=== PATIENT | female | born 1930 | race Caucasian/White ===

== ENCOUNTER 2018-11-29 09:50 | Inpatient (IN) | payer OTHER ==
[~2018-11-29] VITALS: Ht 152.4 cm; Wt 51.7 kg
[2018-11-29 09:53] VITALS: Ht 152.4 cm; Wt 51.7 kg
[2018-11-29] MEDS ORDERED: SOD CHLORIDE 0.9% 1,000 ML IV STA (10:14)
--- NOTE | 2018-11-29 10:19 | ERD ---
ER Documentation Chief Complaint Chief Complaint low h/h from assisted living. sent by pmd HPI 88-year-old woman referred here from assisted living facility for anemia. Patient states she has been feeling weak and dehydrated for the last 5-7 days. She denies blood per rectum or melena, no fevers or chills, no complaints of chest pain or shortness of breath. Patient does have dementia so HPI was limited but supplemented by speaking to EMS, reviewing custodial records, and past medical history. Patient is DO NOT RESUSCITATE status ROS All systems reviewed and are negative except as per history of present illness. Medications Home Meds Reported Medications Zolpidem Tartrate* (Zolpidem Tartrate*) 5 Mg Tablet, 5 MG PO QHS PRN for INSOMNIA, #30 TAB 11/29/18 Sennosides* (Senna Lax*) 8.6 Mg Tablet, 1 TAB PO DAILY PRN for CONSTIPATION, TAB 11/29/18 Guaifenesin-Dextromethorphan* (Robitussin* DM) 100MG/10MG/5ML Syrup, 10 ML PO Q4H PRN for COUGH, ML 11/29/18 Amino Acids/Protein Hydrolys (PRO-STAT LIQUID) 30 Ml Liquid.pkt, 30 ML PO BID 11/29/18 Ondansetron Hcl* (Ondansetron Hcl*) 4 Mg Tablet, 4 MG PO Q8 PRN for NAUSEA AND/OR VOMITING, TAB 11/29/18 Multivitamins* (Theragran*) 1 Tab Tab, 1 TAB PO DAILY, TAB 11/29/18 Metoprolol Tartrate* (Lopressor*) 50 Mg Tab, 50 MG PO BID, #60 TAB HOLD FOR SBP<110 OR HR<60 11/29/18 Melatonin (Melatonin) 3 Mg Tablet.sa, 3 MG PO HS, TAB.SA 11/29/18 Magnesium Oxide* (Magnesium Oxide*) 400 Mg Tablet, 400 MG PO BID, TAB 11/29/18 Levothyroxine Sodium* (Levothyroxine Sodium*) 125 Mcg Tablet, 125 MCG PO BEFORE BREAKFAST, #30 TAB 11/29/18 Hydrocodone/Acetaminophen (Wildrose 5-325 Tablet) 1 Each Tablet, 1 EACH PO Q4 PRN f or SEVERE PAIN LEVEL 7-10, TAB 11/29/18 Hydralazine Hcl* (Hydralazine Hcl*) 25 Mg Tab, 25 MG PO BID, #60 TAB HOLD FOR SBP<110 11/29/18 Guaifenesin/Dextromethorphan (Tammie-Tussin Dm Syrup) 473 Ml Syrup, 10 ML PO Q4 PRN for COUGH 11/29/18 Ferrous Sulfate* (Ferrous Sulfate*) 325 Mg Tabec, 325 MG PO DAILY, TAB 11/29/18 Docusate Sodium* (Colace*) 100 Mg Capsule, 100 MG PO BID, #60 CAP 11/29/18 Clopidogrel Bisulfate (Clopidogrel) 75 Mg Tablet, 75 MG PO DAILY, #30 TAB 11/29/18 Benzocaine/Menthol* (Cepacol* Sore Throat Lozenges) 1 Each Lozenge, 1 EACH MM q2h PRN for SORE THROAT, LOZENGE 11/29/18 Atorvastatin* (Atorvastatin*) 40 Mg Tablet, 40 MG PO QHS, #30 TAB 11/29/18 Aspirin* (Aspirin* Chew) 81 Mg Tab.chew, 81 MG PO DAILY, TAB.CHEW 11/29/18 Ascorbic Acid (Vitamin C) 250 Mg Tab, 250 MG PO DAILY, TAB 11/29/18 Acetaminophen* (Acetaminophen*) 650 Mg Tablet, 650 MG PO Q6H PRN for MILD PAIN LEVEL 1-3, #30 TAB 11/29/18 Discontinued Reported Medications Metoprolol Succinate* (Toprol XL*) 25 Mg Tab.sr.24h, 25 MG PO DAILY, #30 TAB HOLD IF SBP<110 OR HR<60 11/29/18 Allergies Allergies: Coded Allergies: Sulfa (Sulfonamide Antibiotics) (Verified Allergy, Severe, 11/29/18) PER FACESHEET PMhx/Soc Hypertension, hypothyroidism, history of SVT FmHx Family History: No diabetes Physical Exam Vitals Vital Signs Date Temp Pulse Resp B/P (MAP) Pulse Ox O2 O2 Flow FiO2 Time Delivery Rate 11/29/18 97.5 76 18 119/54 95 09:53 (75) Physical Exam Const: No acute distress, appears dehydrated, afebrile Head: Atraumatic Eyes: Pale conjunctiva, no icterus ENT: Dry mucous membranes Neck: Full range of motion. No meningismus. Resp: Clear to auscultation bilaterally Cardio: Tachycardic and regular Abd: Soft, non tender, non distended. Normal bowel sounds Skin: No petechiae or rashes Back: No midline or flank tenderness Ext: No cyanosis, or edema Neur: Awake and alert x3, no focal deficits or facial asymmetry Psych: Normal Mood and Affect Result Diagram: 11/29/18 1012 11/29/18 1012 Results 24 hrs Laboratory Tests Test 11/29/18 10:12 11/29/18 10:50 White Blood Count 7.3 10^3/ul Red Blood Count 2.63 10^6/ul Hemoglobin 7.4 g/dl Hematocrit 24.1 % Mean Corpuscular Volume 91.6 fl Mean Corpuscular Hemoglobin 28.1 pg Mean Corpuscular Hemoglobin Concent 30.7 g/dl Red Cell Distribution Width 17.2 % Platelet Count 762 10^3/UL Mean Platelet Volume 8.1 fl Immature Granulocytes % 0.500 % Neutrophils % 73.6 % Lymphocytes % 11.4 % Monocytes % 8.1 % Eosinophils % 5.4 % Basophils % 1.0 % Nucleated Red Blood Cells % 0.0 /100WBC Immature Granulocytes # 0.040 10^3/ul Neutrophils # 5.4 10^3/ul Lymphocytes # 0.8 10^3/ul Monocytes # 0.6 10^3/ul Eosinophils # 0.4 10^3/ul Basophils # 0.1 10^3/ul Nucleated Red Blood Cells # 0.0 10^3/ul Sodium Level 137 mmol/L Potassium Level 4.3 mmol/L Chloride Level 96 mmol/L Carbon Dioxide Level 27 mmol/L Anion Gap 14 Blood Urea Nitrogen 14 mg/dl Creatinine 0.64 mg/dl Est Glomerular Filtrat Rate mL/min mL/min Glucose Level 98 mg/dl Calcium Level 9.3 mg/dl Total Bilirubin 0.0 mg/dl Direct Bilirubin 0.00 mg/dl Indirect Bilirubin 0.0 mg/dl Aspartate Amino Transf (AST/SGOT) 26 IU/L Alanine Aminotransferase (ALT/SGPT) 17 IU/L Alkaline Phosphatase 99 IU/L Troponin I < 0.012 ng/ml Total Protein 6.6 g/dl Albumin 3.3 g/dl Globulin 3.30 g/dl Albumin/Globulin Ratio 1.00 Lipase 62 U/L Urine Color YELLOW Urine Clarity CLEAR Urine pH 7.0 Urine Specific Sterling 1.008 Urine Ketones NEGATIVE mg/dL Urine Nitrite NEGATIVE mg/dL Urine Bilirubin NEGATIVE mg/dL Urine Urobilinogen NEGATIVE mg/dL Urine Leukocyte Esterase NEGATIVE Alannah/ul Urine Hemoglobin NEGATIVE mg/dL Urine Glucose NEGATIVE mg/dL Urine Total Protein NEGATIVE mg/dl Current Medications Medications Dose Sig/Martell Start Time Status Last (Trade) Ordered Route PRN Stop Time Admin Dose Reason Admin Sodium 1,000 ml @ Q1H STAT 11/29/18 DC 11/29/18 Chloride 1,000 mls/hr IV 10:14 10:36 11/29/18 11:13 Procedures/MDM IV line was established patient was placed on surveillance monitor rhythm strip revealed a narrow complex tachycardia at 110 bpm with upright P and T waves. Patient was afebrile I administered 1 L normal saline IV for dehydration. EKG performed, read by me revealed a normal sinus rhythm at 91 bpm, normal axis, narrow QRS complex, no concerning ST elevations or depressions noted CBC revealed anemia with a hemoglobin of 7.4, electrolytes were significant for dehydration, urinalysis negative for infection. Patient does have symptomatic anemia and will be admitted to medicine for continued medical management and possible PRBC transfusion that was deferred to admitting physician. Departure Diagnosis: Primary Impression: Weakness Additional Impressions: Symptomatic anemia Dehydration Condition: LANDON Gross MD Nov 29, 2018 10:19
[2018-11-29] MEDS ORDERED: ACET-2047 PO (10:57)
[2018-11-29] MEDS ORDERED: ASCO250T96 PO (10:58)
[2018-11-29] MEDS ORDERED: ASPI-903 PO (10:58)
[2018-11-29] MEDS ORDERED: ATOR40TA68 PO (10:58)
[2018-11-29] MEDS ORDERED: CLOP75TA27 PO (10:59)
[2018-11-29] MEDS ORDERED: DOCU-144 PO (10:59)
[2018-11-29] MEDS ORDERED: BENZ1LOZ52 MM (10:59)
[2018-11-29] MEDS ORDERED: FER325 PO (11:00)
[2018-11-29] MEDS ORDERED: [UNRECOGNIZED DRUG - CODE] PO (11:01)
[2018-11-29] MEDS ORDERED: HYDR-3671 PO (11:02)
[2018-11-29] MEDS ORDERED: HYDR-4011 PO (11:02)
[2018-11-29] MEDS ORDERED: LEVO125T7 PO (11:03)
[2018-11-29] MEDS ORDERED: MELA3TAB17 PO (11:03)
[2018-11-29] MEDS ORDERED: MAGN400T28 PO (11:03)
[2018-11-29] MEDS ORDERED: METO-335 PO (11:04)
[2018-11-29] MEDS ORDERED: METO-429 PO (11:05)
[2018-11-29] MEDS ORDERED: MULTI PO (11:06)
[2018-11-29] MEDS ORDERED: ONDA4TAB95 PO (11:07)
[2018-11-29] MEDS ORDERED: AMIN30LI PO (11:07)
[2018-11-29] MEDS ORDERED: GUAI5SYR2 PO (11:07)
[2018-11-29] MEDS ORDERED: SENN-120 PO (11:08)
[2018-11-29] MEDS ORDERED: ZOLP5TAB7 PO (11:08)
[2018-11-29 17:12] VITALS: BP 135/63; PULSE 93; RESP 16
[2018-11-29] MEDS ORDERED: HYDROCODONE/APAP (5/325) TAB PO PRN (18:00)
[2018-11-29] MEDS ORDERED: SENNA TAB PO PRN (18:00)
[2018-11-29] MEDS ORDERED: ONDANSETRON 4 MG TAB PO PRN (18:00)
[2018-11-29] MEDS ORDERED: ZOLPIDEM 5 MG TAB PO PRN (18:00)
[2018-11-29] MEDS ORDERED: ACETAMINOPHEN 325 MG TAB PO PRN (18:00)
[2018-11-29 20:17] VITALS: BP 110/53; PULSE 95; RESP 16
[2018-11-29] MEDS: ATORVASTATIN 40 MG TAB PO SCH (20:35)
[2018-11-29] MEDS: MAGNESIUM OXIDE 400 MG TAB PO SCH (20:36)
[2018-11-29] MEDS: DOCUSATE SODIUM 100 MG CAP PO SCH (20:36)
[2018-11-29] MEDS ORDERED: METOPROLOL 50 MG TAB PO SCH (21:00)
--- NOTE | 2018-11-29 22:44 | HP ---
DATE OF ADMISSION: 11/29/2018 CHIEF COMPLAINT: Generalized weakness. HISTORY OF PRESENT ILLNESS: The patient is an 88-year-old female with hypertension, recent admission at [facility] for supraventricular tachycardia, hypothyroidism, coronary artery disease, dy slipidemia who was recently recuperating from left distal fibular fracture. The patient was noted to have a hemoglobin of 6.4 [facility]. Platelets were 707, white count was 6.6. The pat ient has been sent to [facility] ER for further evaluation and management. The patient does have generalized weakness and looks pale and weak. No hematemesis or melena. No hematuria. No rep orted abdominal distention. Hemoglobin on 11/08/2018 was 8.2. The patient does not have any focal w eakness, remains awake and alert. The rest of the review of systems was unremarkable. PAST MEDICAL HISTORY AND PAST SURGICAL HISTORY: The patient is status post surgery for carotid arter y stenosis. The patient is status post carotid endarterectomy. The patient also has history of cerv ical spinal stenosis. ALLERGIES: SULFA. SOCIAL HISTORY: No smoking. No alcohol. FAMILY HISTORY: Noncontributory. PHYSICAL EXAMINATION: GENERAL: Awake, alert, oriented x3. VITAL SIGNS: Temperature 97.8, pulse 90, respirations 16, blood pressure 110/53, O2 saturation 94% o n room air. HEENT: Atraumatic, normocephalic. Conjunctivae are pale. Lids are normal. Oropharynx with pale mu cosa. NECK: Supple. No mass, no thyromegaly. CHEST: Fairly clear. No use of accessory muscles. CARDIOVASCULAR: S1 and S2 normal. No murmur. ABDOMEN: Soft, nondistended, nontender. No palpable mass. EXTREMITIES: No leg edema. Pedal pulses could not be felt. LABORATORY DATA: Labs done in the ER, WBC 7.2, hemoglobin 10.4, platelets 762. Sodium 137, potassiu m 4.3, BUN 14, creatinine 0.6. Liver enzymes unremarkable. Chest x-ray: Low lung volume, otherwise unremarkable. IMPRESSION: 1. Hypochromic anemia. The patient's MCH is 28.1 and also platelets 762, although her MCV is within normal range. We will obtain iron panel, vitamin B12, folic acid, and TSH level. We will also obta in LDH and retic count. We will also obtain stool for occult blood, hematology/oncology consult from Dr. Milian and GI consult from Dr. Tubbs has been obtained. Plan is to do endoscopy first. If ther e is no abnormality, the patient then will undergo colonoscopy. 2. Coronary artery disease and peripheral vascular disease. Continue aspirin. 3. Hypothyroidism. Continue Synthroid. 4. Dyslipidemia. Continue Lipitor. 5. Hypertension. Blood pressure is reasonably controlled with Apresoline and Lopressor. PLAN: Plan of care was discussed with the patient's daughter. Further recommendation will depend up on the patient's hospital course. Dictated By: EULALIO PINON/GERARD Conf#: [id number] DID#: [id number]
[2018-11-29] MEDS ORDERED: FUROSEMIDE 20 MG INJ IV ONE (23:30)
[2018-11-29 23:55] VITALS: BP 118/58; PULSE 94; RESP 18
[2018-11-30] VITALS (20 sets, daily range): BP systolic 114–142; BP diastolic 53–71; PULSE 72–106; RESP 16–22
[2018-11-30] MEDS ORDERED: LEVOTHYROXINE 125 MCG TAB PO SCH (07:00)
[2018-11-30] MEDS ORDERED: ETOMIDATE 20 MG INJ ONE (07:00)
[2018-11-30] MEDS ORDERED: LIDOCAINE 2% (SDV) 5 ML INJ ONE (07:00)
--- NOTE | 2018-11-30 08:54 | PREAC ---
Date/Time of Note Date/Time of Note DATE: 11/30/18 TIME: 08:53 Anesthesia Eval and Record Evaluation Time Pre-Procedure Interview DATE: 11/30/18 TIME: 08:52 Age 88 Sex female NPO: 8 hrs Preoperative diagnosis anemia, weakness, Planned procedure EGD Past Medical History Past Medical History: Includes Cardio: Dyslipidemia, CAD Surgery & Anesthesia Issues No known issue Meds Anticoagulation: No Beta Freya within 24 hr: Yes Reason Beta Freya not given: Pt. not on B-Freya Reported Medications Zolpidem Tartrate* (Zolpidem Tartrate*) 5 Mg Tablet, 5 MG PO QHS PRN for INSOMNIA, #30 TAB 11/29/18 Sennosides* (Senna Lax*) 8.6 Mg Tablet, 1 TAB PO DAILY PRN for CONSTIPATION, TAB 11/29/18 Guaifenesin-Dextromethorphan* (Robitussin* DM) 100MG/10MG/5ML Syrup, 10 ML PO Q4H PRN for COUGH, ML 11/29/18 Amino Acids/Protein Hydrolys (PRO-STAT LIQUID) 30 Ml Liquid.pkt, 30 ML PO BID 11/29/18 Ondansetron Hcl* (Ondansetron Hcl*) 4 Mg Tablet, 4 MG PO Q8 PRN for NAUSEA AND/OR VOMITING, TAB 11/29/18 Multivitamins* (Theragran*) 1 Tab Tab, 1 TAB PO DAILY, TAB 11/29/18 Metoprolol Tartrate* (Lopressor*) 50 Mg Tab, 50 MG PO BID, #60 TAB HOLD FOR SBP<110 OR HR<60 11/29/18 Melatonin (Melatonin) 3 Mg Tablet.sa, 3 MG PO HS, TAB.SA 11/29/18 Magnesium Oxide* (Magnesium Oxide*) 400 Mg Tablet, 400 MG PO BID, TAB 11/29/18 Levothyroxine Sodium* (Levothyroxine Sodium*) 125 Mcg Tablet, 125 MCG PO BEFORE BREAKFAST, #30 TAB 11/29/18 Hydrocodone/Acetaminophen (Pavo 5-325 Tablet) 1 Each Tablet, 1 EACH PO Q4 PRN for SEVERE PAIN LEVEL 7-10, TAB 11/29/18 Hydralazine Hcl* (Hydralazine Hcl*) 25 Mg Tab, 25 MG PO BID, #60 TAB HOLD FOR SBP<110 11/29/18 Guaifenesin/Dextromethorphan (Tammie-Tussin Dm Syrup) 473 Ml Syrup, 10 ML PO Q4 PRN for COUGH 11/29/18 Ferrous Sulfate* (Ferrous Sulfate*) 325 Mg Tabec, 325 MG PO DAILY, TAB 11/29/18 Docusate Sodium* (Colace*) 100 Mg Capsule, 100 MG PO BID, #60 CAP 11/29/18 Clopidogrel Bisulfate (Clopidogrel) 75 Mg Tablet, 75 MG PO DAILY, #30 TAB 11/29/18 Benzocaine/Menthol* (Cepacol* Sore Throat Lozenges) 1 Each Lozenge, 1 EACH MM q2h PRN for SORE THROAT, LOZENGE 11/29/18 Atorvastatin* (Atorvastatin*) 40 Mg Tablet, 40 MG PO QHS, #30 TAB 11/29/18 Aspirin* (Aspirin* Chew) 81 Mg Tab.chew, 81 MG PO DAILY, TAB.CHEW 11/29/18 Ascorbic Acid (Vitamin C) 250 Mg Tab, 250 MG PO DAILY, TAB 11/29/18 Acetaminophen* (Acetaminophen*) 650 Mg Tablet, 650 MG PO Q6H PRN for MILD PAIN LEVEL 1-3, #30 TAB 11/29/18 Discontinued Reported Medications Metoprolol Succinate* (Toprol XL*) 25 Mg Tab.sr.24h, 25 MG PO DAILY, #30 TAB HOLD IF SBP<110 OR HR<60 11/29/18 Current Medications Acetaminophen (Tylenol Tab) 650 mg Q6H PRN PO MILD PAIN LEVEL 1-3; Start at 18:00 Ascorbic Acid (Vitamin C) 250 mg DAILY PO ; Start 11/30/18 at 09:00 Aspirin (Aspirin) 81 mg DAILY PO ; Start 11/30/18 at 09:00 Atorvastatin Calcium (Lipitor) 40 mg QHS PO Last administered on 11/29/18at 20:35; Admin Dose 40 MG; Start 11/29/18 at 21:00 Docusate Sodium (Colace) 100 mg BID PO Last administered on 11/29/18at 20:36; Admin Dose 100 MG; Start 11/29/18 at 21:00 Ferrous Sulfate (Ferrous Sulfate (Ec)) 325 mg DAILY PO ; Start 11/30/18 at 09:00 Acetaminophen/ Hydrocodone Bitart (Pavo (5/325)) 1 tab Q4H PRN PO SEVERE PAIN LEVEL 7-10; Start 11/29/18 at 18:00 Levothyroxine Sodium (Synthroid) 125 mcg BEFORE BREAKFAST PO ; Start 11/30/18 at 07:00 Magnesium Oxide (Mag-Ox 400) 400 mg BID PO Last administered on 11/29/18at 20:36; Admin Dose 400 MG; Start 11/29/18 at 21:00 Multivitamins Therapeutic (Theragran) 1 tab DAILY PO ; Start 11/30/18 at 09:00 Ondansetron HCl (Zofran Tab) 4 mg Q8H PRN PO NAUSEA AND/OR VOMITING; Start 11/29/18 at 18:00 Senna (Senokot) 1 tab DAILY PRN PO CONSTIPATION; Start 11/29/18 at 18:00 Zolpidem Tartrate (Ambien) 5 mg QHS PRN PO INSOMNIA; Start 11/29/18 at 18:00 Metoprolol Tartrate (Lopressor) 25 mg BID PO ; Start 11/30/18 at 09:00 Meds reviewed: Yes Allergies Coded Allergies: Sulfa (Sulfonamide Antibiotics) (Verified Allergy, Severe, 11/29/18) PER FACESHEET Allergies Reviewed: Yes Labs/Studies Labs Reviewed: Reviewed by anesthesiologist Result Diagram: 11/29/18 1012 11/29/18 1012 Laboratory Tests 11/29/18 10:12 Blood Bank Test 11/29/18 10:32 Antibody Screen NEGATIVE Blood Product Summary Counts Blood Type A POSITIVE Crossmatch Red Blood Cells test: N/A Studies: ECG (sT), CXR (atelectasis) Pre-procedure Exam Last vitals Vital Signs Date Temp Pulse Resp B/P (MAP) Pulse Ox O2 O2 Flow FiO2 Time Delivery Rate 11/30/18 97.9 91 17 133/62 95 Nasal 2.0 08:40 (85) Cannula Airway: Adequate mouth opening Mallampati: Mallampati I Teeth: Normal Lung: Normal Heart: Normal ASA Physical Status ASA physical status: 2 Emergency: None Planned Anesthetic General/MAC: MAC Planned Pain Management Parenteral pain med Pre-operative Attestations Prior to commencing anesthesia and surgery, the patient was re-evaluated, there was verification of: *The patient's identity *The results of appropriate recent lab work and preoperative vital signs *The above evaluation not changing prior to induction *Anesthetic plan, risk benefits, alternative and complications discussed with patient/family; questions answered; patient/family understands, accepts and wishes to proceed. ERVIN CARVALHO MD Nov 30, 2018 08:54
[2018-11-30] MEDS ORDERED: ONDANSETRON 4 MG INJ IV PRN (09:00)
[2018-11-30] MEDS ORDERED: FENTAnyl 50 MCG/ML VIAL ONE (09:02)
[2018-11-30] MEDS ORDERED: PROPOFOL 20 ML ONE (09:02)
[2018-11-30] MEDS ORDERED: BISACODYL (EC) 5 MG TAB PO ONE (10:00)
--- NOTE | 2018-11-30 10:11 | PAC ---
Date/Time of Note Date/Time of Note DATE: 11/30/18 TIME: 10:10 Post-Anesthesia Notes Post-Anesthesia Note Last documented vital signs Vital Signs Date Temp Pulse Resp B/P (MAP) Pulse Ox O2 O2 Flow FiO2 Time Delivery Rate 11/30/18 98.0 96 16 131/60 99 Room Air 09:39 (83) 11/30/18 2.0 09:12 Activity: WNL Respiratory function: WNL Cardiovascular function: WNL Mental status: Baseline Pain reasonably controlled: Yes Hydration appropriate: Yes Nausea/Vomiting absent: No ERVIN CARVALHO MD Nov 30, 2018 10:10
--- NOTE | 2018-11-30 10:20 | CONS ---
Assessment/Plan Assessment/Plan Hospital Course (Demo Recall) #Anemia -pt is noted to have a normocytic anemia -agree with GI evaluation to ensure no evidence of GI bleed -need to ensure there are no other contributing factors to patients anemia. -check Vitamin b12 / folate -r/o thyroid dysfuction, check TSH -r/o monoclonal gammopathy, check spep -r/o hemolysis, check LDH, retic , haptoglobin -r/o iron deficiency: check iron panel, ferritin -in case of MDS, will check epo level to see if patient would benefit from procrit # Consultation Date/Type/Reason Admit Date/Time Nov 29, 2018 at 10:29 Date of Consultation: Nov 30, 2018 Type of Consult hematology Reason for Consultation anemia Requesting Provider: EULALIO FITZGERALD MD Date/Time of Note DATE: 11/30/18 TIME: 09:57 Hx of Present Illness 88 yo female who [facility] with severe anemia. Hemoglobin on 11/08/2018 was 8.2.Yesterday on admission it was 7.4, with normal MCV. PT currently is receiving 2 units of PRBCs. Pt does c/o weakness, fatigue and SOB. PT is pending GI evaluation. Constitutional: poor po Eyes: no complaints ENT: no complaints Respiratory: shortness of breath Cardiovascular: lightheadedness Gastrointestinal: no complaints, decreased appetite Genitourinary: no complaints Musculoskeletal: no complaints Neurologic: no complaints Past Medical History supraventricular tachycardia, hypothyroidism, coronary artery disease, dyslipidemia Home Meds Reported Medications Zolpidem Tartrate* (Zolpidem Tartrate*) 5 Mg Tablet, 5 MG PO QHS PRN for INSOMNIA, #30 TAB 11/29/18 Sennosides* (Senna Lax*) 8.6 Mg Tablet, 1 TAB PO DAILY PRN for CONSTIPATION, TAB 11/29/18 Guaifenesin-Dextromethorphan* (Robitussin* DM) 100MG/10MG/5ML Syrup, 10 ML PO Q4H PRN for COUGH, ML 11/29/18 Amino Acids/Protein Hydrolys (PRO-STAT LIQUID) 30 Ml Liquid.pkt, 30 ML PO BID 11/29/18 Ondansetron Hcl* (Ondansetron Hcl*) 4 Mg Tablet, 4 MG PO Q8 PRN for NAUSEA AND/OR VOMITING, TAB 11/29/18 Multivitamins* (Theragran*) 1 Tab Tab, 1 TAB PO DAILY, TAB 11/29/18 Metoprolol Tartrate* (Lopressor*) 50 Mg Tab, 50 MG PO BID, #60 TAB HOLD FOR SBP<110 OR HR<60 11/29/18 Melatonin (Melatonin) 3 Mg Tablet.sa, 3 MG PO HS, TAB.SA 11/29/18 Magnesium Oxide* (Magnesium Oxide*) 400 Mg Tablet, 400 MG PO BID, TAB 11/29/18 Levothyroxine Sodium* (Levothyroxine Sodium*) 125 Mcg Tablet, 125 MCG PO BEFORE BREAKFAST, #30 TAB 11/29/18 Hydrocodone/Acetaminophen ([place] 5-325 Tablet) 1 Each Tablet, 1 EACH PO Q4 PRN for SEVERE PAIN LEVEL 7-10, TAB 11/29/18 Hydralazine Hcl* (Hydralazine Hcl*) 25 Mg Tab, 25 MG PO BID, #60 TAB HOLD FOR SBP<110 11/29/18 Guaifenesin/Dextromethorphan (Tammie-Tussin Dm Syrup) 473 Ml Syrup, 10 ML PO Q4 OR N for COUGH 11/29/18 Ferrous Sulfate* (Ferrous Sulfate*) 325 Mg Tabec, 325 MG PO DAILY, TAB 11/29/18 Docusate Sodium* (Colace*) 100 Mg Capsule, 100 MG PO BID, #60 CAP 11/29/18 Clopidogrel Bisulfate (Clopidogrel) 75 Mg Tablet, 75 MG PO DAILY, #30 TAB 11/29/18 Benzocaine/Menthol* (Cepacol* Sore Throat Lozenges) 1 Each Lozenge, 1 EACH MM q2h PRN for SORE THROAT, LOZENGE 11/29/18 Atorvastatin* (Atorvastatin*) 40 Mg Tablet, 40 MG PO QHS, #30 TAB 11/29/18 Aspirin* (Aspirin* Chew) 81 Mg Tab.chew, 81 MG PO DAILY, TAB.CHEW 11/29/18 Ascorbic Acid (Vitamin C) 250 Mg Tab, 250 MG PO DAILY, TAB 11/29/18 Acetaminophen* (Acetaminophen*) 650 Mg Tablet, 650 MG PO Q6H PRN for MILD PAIN LEVEL 1-3, #30 TAB 11/29/18 Discontinued Reported Medications Metoprolol Succinate* (Toprol XL*) 25 Mg Tab.sr.24h, 25 MG PO DAILY, #30 TAB HOLD IF SBP<110 OR HR<60 11/29/18 Medications Current Medications Acetaminophen (Tylenol Tab) 650 mg Q6H PRN PO MILD PAIN LEVEL 1-3; Start 11/29/18 at 18:00 Ascorbic Acid (Vitamin C) 250 mg DAILY PO ; Start 11/30/18 at 09:00 Aspirin (Aspirin) 81 mg DAILY PO ; Start 11/30/18 at 09:00 Atorvastatin Calcium (Lipitor) 40 mg QHS PO Last administered on 11/29/18at 20:35; Admin Dose 40 MG; Start 11/29/18 at 21:00 Docusate Sodium (Colace) 100 mg BID PO Last administered on 11/29/18at 20:36; Admin Dose 100 MG; Start 11/29/18 at 21:00 Ferrous Sulfate (Ferrous Sulfate (Ec)) 325 mg DAILY PO ; Start 11/30/18 at 09:00 Acetaminophen/ Hydrocodone Bitart ([place] (5/325)) 1 tab Q4H PRN PO SEVERE PAIN LEVEL 7-10; Start 11/29/18 at 18:00 Levothyroxine Sodium (Synthroid) 125 mcg BEFORE BREAKFAST PO ; Start 11/30/18 at 07:00 Magnesium Oxide (Mag-Ox 400) 400 mg BID PO Last administered on 11/29/18at 20:36; Admin Dose 400 MG; Start 11/29/18 at 21:00 Multivitamins Therapeutic (Theragran) 1 tab DAILY PO ; Start 11/30/18 at 09:00 Ondansetron HCl (Zofran Tab) 4 mg Q8H PRN PO NAUSEA AND/OR VOMITING; Start 11/29/18 at 18:00 Senna (Senokot) 1 tab DAILY PRN PO CONSTIPATION; Start 11/29/18 at 18:00 Zolpidem Tartrate (Ambien) 5 mg QHS PRN PO INSOMNIA; Start 11/29/18 at 18:00 Metoprolol Tartrate (Lopressor) 25 mg BID PO ; Start 11/30/18 at 09:00 Ondansetron HCl (Zofran Inj) 4 mg PACU ORDER PRN IV NAUSEA/VOMITING; Start 11/30/18 at 09:00; Stop 11/30/18 at 13:00 Bisacodyl (Dulcolax) 10 mg ONCE ONCE PO ; Start 11/30/18 at 10:00; Stop 11/30/18 at 10:01; Status UNV Polyethylene Glycol (Miralax) 3,350 gm 2nd Dose (GI Prep) ONCE PO ; Start 11/30/18 at 10:00; Stop 11/30/18 at 10:01; Status UNV Lactulose (Enulose) 20 gm Q4 PO ; Start 11/30/18 at 13:00; Status UNV Allergies: Coded Allergies: Sulfa (Sulfonamide Antibiotics) (Verified Allergy, Severe, 11/29/18) PER FACESHEET Past Surgical History carotid artery stenosis status post carotid endarterectomy \ history of cervical spinal stenosis. Family History Significant Family History: no pertinent family hx Social History Alcohol Use: none Smoking Status: Never smoker Drug Use: none Exam/Review of Systems Exam Vitals Vital Signs Date Temp Pulse Resp B/P (MAP) Pulse Ox O2 O2 Flow FiO2 Time Delivery Rate 11/30/18 97.4 90 21 134/63 96 Nasal 2.0 09:12 (86) Cannula Intake and Output 11/29/18 11/29/18 11/30/18 1515:00 23:00 07:00 IntakeIntake Total 240 ml 650 ml BalanceBalance 240 ml 650 ml Constitutional: alert, oriented, other (hard of hearing) Head: normocephalic Eyes: nl conjunctiva ENMT: nl external ears & nose Neck: supple Respiratory: clear to auscultation Cardiovascular: regular rate and rhythm Gastrointestinal: soft Musculoskeletal: nl extremities to inspection Extremities: normal pulses Skin: nl turgor Results Result Diagram: 11/29/18 1012 11/29/18 1012 Results 24hrs Laboratory Tests Test 11/29/18 10:12 11/29/18 10:50 11/30/18 00:25 11/30/18 07:01 White Blood Count 7.3 Red Blood Count 2.63 L Hemoglobin 7.4 L Hematocrit 24.1 L Mean Corpuscular 91.6 Volume Mean Corpuscular 28.1 L Hemoglobin Mean Corpuscular 30.7 L Hemoglobin Concen t Red Cell 17.2 H Distribution Width Platelet Count 762 H Mean Platelet 8.1 Volume Immature 0.500 H Granulocytes % Neutrophils % 73.6 Lymphocytes % 11.4 L Monocytes % 8.1 Eosinophils % 5.4 Basophils % 1.0 Nucleated Red 0.0 Blood Cells % Immature 0.040 H Granulocytes # Neutrophils # 5.4 Lymphocytes # 0.8 Monocytes # 0.6 Eosinophils # 0.4 Basophils # 0.1 Nucleated Red 0.0 Blood Cells # Sodium Level 137 Potassium Level 4.3 Chloride Level 96 L Carbon Dioxide 27 Level Anion Gap 14 H Blood Urea 14 Nitrogen Creatinine 0.64 Est Glomerular Filtrat Rate mL/min Glucose Level 98 Calcium Level 9.3 Total Bilirubin 0.0 L Direct Bilirubin 0.00 Indirect 0.0 Bilirubin Aspartate Amino 26 Transf (AST/SGOT) Alanine 17 Aminotransferase (ALT/SGPT) Alkaline 99 Phosphatase Troponin I < 0.012 Total Protein 6.6 Albumin 3.3 Globulin 3.30 H Albumin/Globulin 1.00 Ratio Lipase 62 Urine Color YELLOW Urine Clarity CLEAR Urine pH 7.0 Urine Specific 1.008 [place] Urine Ketones NEGATIVE Urine Nitrite NEGATIVE Urine Bilirubin NEGATIVE Urine NEGATIVE Urobilinogen Urine Leukocyte NEGATIVE Esterase Urine Hemoglobin NEGATIVE Urine Glucose NEGATIVE Urine Total NEGATIVE Protein Stool Occult POSITIVE Blood Lab Scanned BLOOD TRANSFUSIO Report N Medications Medication Current Medications Acetaminophen (Tylenol Tab) 650 mg Q6H PRN PO MILD PAIN LEVEL 1-3; Start 11/29/18 at 18:00 Ascorbic Acid (Vitamin C) 250 mg DAILY PO ; Start 11/30/18 at 09:00 Aspirin (Aspirin) 81 mg DAILY PO ; Start 11/30/18 at 09:00 Atorvastatin Calcium (Lipitor) 40 mg QHS PO Last administered on 11/29/18at 20:35; Admin Dose 40 MG; Start 11/29/18 at 21:00 Docusate Sodium (Colace) 100 mg BID PO Last administered on 11/29/18at 20:36; Admin Dose 100 MG; Start 11/29/18 at 21:00 Ferrous Sulfate (Ferrous Sulfate (Ec)) 325 mg DAILY PO ; Start 11/30/18 at 09:00 Acetaminophen/ Hydrocodone Bitart ([place] (5/325)) 1 tab Q4H PRN PO SEVERE PAIN LEVEL 7-10; Start 11/29/18 at 18:00 Levothyroxine Sodium (Synthroid) 125 mcg BEFORE BREAKFAST PO ; Start 11/30/18 at 07:00 Magnesium Oxide (Mag-Ox 400) 400 mg BID PO Last administered on 11/29/18at 20:36; Admin Dose 400 MG; Start 11/29/18 at 21:00 Multivitamins Therapeutic (Theragran) 1 tab DAILY PO ; Start 11/30/18 at 09:00 Ondansetron HCl (Zofran Tab) 4 mg Q8H PRN PO NAUSEA AND/OR VOMITING; Start 11/11 06/29 at 18:00 Senna (Senokot) 1 tab DAILY PRN PO CONSTIPATION; Start 11/29/18 at 18:00 Zolpidem Tartrate (Ambien) 5 mg QHS PRN PO INSOMNIA; Start 11/29/18 at 18:00 Metoprolol Tartrate (Lopressor) 25 mg BID PO ; Start 11/30/18 at 09:00 Ondansetron HCl (Zofran Inj) 4 mg PACU ORDER PRN IV NAUSEA/VOMITING; Start 11/30/18 at 09:00; Stop 11/30/18 at 13:00 Bisacodyl (Dulcolax) 10 mg ONCE ONCE PO ; Start 11/30/18 at 10:00; Stop 11/30/18 at 10:01; Status UNV Polyethylene Glycol (Miralax) 3,350 gm 2nd Dose (GI Prep) ONCE PO ; Start 11/30/18 at 10:00; Stop 11/30/18 at 10:01; Status UNV Lactulose (Enulose) 20 gm Q4 PO ; Start 11/30/18 at 13:00; Status UNV LIZZ DALEY M.D. Nov 30, 2018 10:09
[2018-11-30] MEDS ORDERED: POLYETHYLENE GLYCOL 3350 119 GM POWDER PO SCH ×2 (10:30→15:00)
[2018-11-30] MEDS: MULTIVITAMINS THERAPEUTIC TAB PO SCH (12:57)
[2018-11-30] MEDS: DOCUSATE SODIUM 100 MG CAP PO SCH ×2 (12:57→21:11)
[2018-11-30] MEDS: MAGNESIUM OXIDE 400 MG TAB PO SCH ×2 (12:57→21:11)
[2018-11-30] MEDS: ASPIRIN 81 MG TAB PO SCH (12:57)
[2018-11-30] MEDS: ASCORBIC ACID 250 MG TAB PO SCH (12:57)
[2018-11-30] MEDS: LACTULOSE 30ML CUP PO SCH ×3 (12:58→18:31)
[2018-11-30] MEDS: METOPROLOL 50 MG TAB PO SCH ×2 (12:58→21:12)
--- NOTE | 2018-11-30 13:13 | CONS ---
DATE OF ADMISSION: 11/29/2018 DATE OF CONSULTATION: 11/29/2018 TYPE OF CONSULTATION: Gastroenterology. Dear Dr. Fitzgerald: Thank you for asking me to see Mrs. Draper in GI consultation. HISTORY OF PRESENT ILLNESS: The patient is seen by me on 11/29/2018 at the request of Dr. Miko umanzor of anemia and possible GI bleeding. The patient while being rounded in the retirement, she was found to be very pale. Hemoglobin then was found to be 6.4 grams. The patient has history of pa ssing dark stools. No history of abdominal pain, no vomiting, no bright red bleeding. The patient was recently treated for cardiac arrhythmias in [facility]. PAST SURGICAL HISTORY: Includes she has a carotid artery stenosis surgery which is endarterectomy. REVIEW OF SYSTEMS: Positive for hypertension, hypothyroidism, coronary artery disease, dyslipidemia. SOCIAL HISTORY: The patient does not smoke or drink. PHYSICAL EXAMINATION: GENERAL: The patient is alert. She is 88 years of age, faintly communicate. VITAL SIGNS: Temperature 97.6, pulse is 82, respirations 17, blood pressure 110/60 as noted on 11/29. CARDIOVASCULAR: Heart sounds are well heard. RESPIRATORY: Normal breath sounds. ABDOMEN: Unremarkable. CENTRAL NERVOUS SYSTEM: Unremarkable. LABORATORY WORKUP: Hemoglobin 7.4, hematocrit 24.1, WBC 7300, platelet count 762,000. Potassium 4.3 . Bilirubin 0.0, AST 26, ALT 17, alkaline phosphatase 99, lipase 62. DIAGNOSTIC DATA: The chest x-ray is grossly unremarkable. CLINICAL IMPRESSION: The patient is presenting with history of severe anemia which is normocytic, no rmochromic. She does have a history of dark stools. Rule out bleeding ulcer disease, upper gastroin testinal neoplasm. Certainly colonic neoplasm, arteriovenous malformation should be ruled out. Othe r medical problems include hypertension, hypothyroidism, cardiac arrhythmias. PLAN: At this time, I recommend upper endoscopy as well as lower endoscopy. Once again, doctor, thank you for this consultation. Dictated By: SHENG RIVERA MD NC/NTS Conf#: [id number] DID#: [id number] CC: EULALIO FITZGERALD MD;*EndCC*
[2018-11-30] MEDS: FERROUS SULFATE (EC) 325 MG TAB PO SCH (13:34)
--- NOTE | 2018-11-30 16:23 | PN ---
Date/Time of Note Date/Time of Note DATE: 11/30/18 TIME: 16:17 Assessment/Plan VTE Prophylaxis Risk score (from [facility])>0 risk: 5 SCD applied (from [facility]): Yes Pharmacological prophylaxis: NA/contraindicated Pharm contraindication: bleeding, other Lines/Catheters IV Catheter Type (from [facility]): Peripheral IV Central line still needed: Yes Urinary Cath still in place: No Assessment/Plan Hospital Course Pt is awake, alert, s/p EGD today, plan for colonoscopy tomorrow. Assessment/Plan -Anemia. Status post blood transfusion, continue to continue to monitor hemoglobin and hematocrit. Dr. Milian is following in hematology consultation. -GI bleed, status post EGD with notion of esophagitis. Dr. Tubbs is following in gastroenterology consultation. Plan for colonoscopy tomorrow. -Coronary artery disease and peripheral vascular disease. Continue aspirin. -Hypothyroidism. Continue Synthroid. -Dyslipidemia. Continue Lipitor. -Hypertension. Continue Apresoline and Lopressor. Further recommendations based on clinical course. Plan of care discussed with Dr. Crouch. Result Diagram: 11/30/18 1125 11/29/18 1012 Results 24hrs Laboratory Tests Test 11/30/18 00:25 11/30/18 07:01 11/30/18 11:25 Stool Occult Blood POSITIVE Lab Scanned Report BLOOD TRANSFUSION White Blood Count 5.8 # Red Blood Count 3.61 #L Hemoglobin 10.3 #L Hematocrit 31.8 #L Mean Corpuscular Volume 88.1 Mean Corpuscular Hemoglobin 28.5 L Mean Corpuscular 32.4 Hemoglobin Concent Red Cell Distribution Width 15.8 H Platelet Count 624 H Mean Platelet Volume 8.1 Immature Granulocytes % 0.500 H Neutrophils % 67.7 Lymphocytes % 15.0 Monocytes % 8.4 Eosinophils % 7.4 H Basophils % 1.0 Nucleated Red Blood Cells % 0.0 Immature Granulocytes # 0.030 Neutrophils # 3.9 Lymphocytes # 0.9 Monocytes # 0.5 Eosinophils # 0.4 Basophils # 0.1 Nucleated Red Blood Cells # 0.0 Erythrocyte Sedimentation Rate 65 H Absolute Reticulocyte Count 0.097 Percent Reticulocyte Count 2.7 H Iron Level 90 Total Iron Binding Capacity 250 Percent Iron Saturation 36 Ferritin 50.9 Lactate Dehydrogenase 427 Vitamin B12 Level 813 Folate 11.9 Thyroid Stimulating 0.212 L Hormone (TSH) Free Thyroxine 1.95 H Exam/Review of Systems Exam Vitals Vital Signs Date Temp Pulse Resp B/P (MAP) Pulse Ox O2 O2 Flow FiO2 Time Delivery Rate 11/30/18 97.8 72 16 119/58 98 14:03 (78) 11/30/18 Nasal 2.0 10:45 Cannula Intake and Output 11/29/18 11/29/18 11/30/18 1515:00 23:00 07:00 IntakeIntake Total 240 ml 650 ml BalanceBalance 240 ml 650 ml Constitutional: alert, oriented Respiratory: clear to auscultation Cardiovascular: nl pulses Gastrointestinal: soft, non-tender Extremities: normal pulses Neurological: nl mental status Results Results 24hrs Laboratory Tests Test 11/30/18 00:25 11/30/18 07:01 11/30/18 11:25 Stool Occult Blood POSITIVE Lab Scanned Report BLOOD TRANSFUSION White Blood Count 5.8 # Red Blood Count 3.61 #L Hemoglobin 10.3 #L Hematocrit 31.8 #L Mean Corpuscular Volume 88.1 Mean Corpuscular Hemoglobin 28.5 L Mean Corpuscular 32.4 Hemoglobin Concent Red Cell Distribution Width 15.8 H Platelet Count 624 H Mean Platelet Volume 8.1 Immature Granulocytes % 0.500 H Neutrophils % 67.7 Lymphocytes % 15.0 Monocytes % 8.4 Eosinophils % 7.4 H Basophils % 1.0 Nucleated Red Blood Cells % 0.0 Immature Granulocytes # 0.030 Neutrophils # 3.9 Lymphocytes # 0.9 Monocytes # 0.5 Eosinophils # 0.4 Basophils # 0.1 Nucleated Red Blood Cells # 0.0 Erythrocyte Sedimentation Rate 65 H Absolute Reticulocyte Count 0.097 Percent Reticulocyte Count 2.7 H Iron Level 90 Total Iron Binding Capacity 250 Percent Iron Saturation 36 Ferritin 50.9 Lactate Dehydrogenase 427 Vitamin B12 Level 813 Folate 11.9 Thyroid Stimulating 0.212 L Hormone (TSH) Free Thyroxine 1.95 H Medications Medication Current Medications Acetaminophen (Tylenol Tab) 650 mg Q6H PRN PO MILD PAIN LEVEL 1-3; Start 11/29/18 at 18:00 Ascorbic Acid (Vitamin C) 250 mg DAILY PO Last administered on 11/30/18at 12:57; Admin Dose 250 MG; Start 11/30/18 at 09:00 Aspirin (Aspirin) 81 mg DAILY PO Last administered on 11/30/18at 12:57; Admin Dose 81 MG; Start 11/30/18 at 09:00 Atorvastatin Calcium (Lipitor) 40 mg QHS PO Last administered on 11/29/18 20:35; Admin Dose 40 MG; Start 11/29/18 at 21:00 Docusate Sodium (Colace) 100 mg BID PO Last administered on 11/30/18 12:57; Admin Dose 100 MG; Start 11/29/18 at 21:00 Ferrous Sulfate (Ferrous Sulfate (Ec)) 325 mg DAILY PO ; Start 11/30/18 at 09:00 Acetaminophen/ Hydrocodone Bitart ([place] (5/325)) 1 tab Q4H PRN PO SEVERE PAIN LEVEL 7-10; Start 11/29/18 at 18:00 Levothyroxine Sodium (Synthroid) 125 mcg BEFORE BREAKFAST PO ; Start 11/30/18 at 07:00 Magnesium Oxide (Mag-Ox 400) 400 mg BID PO Last administered on 11/30/18 12:57; Admin Dose 400 MG; Start 11/29/18 at 21:00 Multivitamins Therapeutic (Theragran) 1 tab DAILY PO Last administered on 11/30/18 12:57; Admin Dose 1 TAB; Start 11/30/18 at 09:00 Ondansetron HCl (Zofran Tab) 4 mg Q8H PRN PO NAUSEA AND/OR VOMITING; Start 11/29/18 at 18:00 Senna (Senokot) 1 tab DAILY PRN PO CONSTIPATION; Start 11/29/18 at 18:00 Zolpidem Tartrate (Ambien) 5 mg QHS PRN PO INSOMNIA; Start 11/29/18 at 18:00 Metoprolol Tartrate (Lopressor) 25 mg BID PO Last administered on 11/30/18at 12:58; Admin Dose 25 MG; Start 11/30/18 at 09:00 Polyethylene Glycol (Miralax) 119 gm 2nd Dose (GI Prep) PO ; Start 11/30/18 at 15:00; Stop 11/30/18 at 19:00 Lactulose (Enulose) 20 gm Q4H PO Last administered on 11/30/18at 15:49; Admin Dose 20 GM; Start 11/30/18 at 10:00; Stop 11/30/18 at 18:01 RODRIGUE TOURE Nov 30, 2018 16:23
--- NOTE | 2018-11-30 17:45 | PREAC ---
Date/Time of Note Date/Time of Note DATE: 11/30/18 TIME: 17:44 Anesthesia Eval and Record Evaluation Time Pre-Procedure Interview DATE: 11/30/18 TIME: 17:44 Age 88 Sex female NPO: 8 hrs Preoperative diagnosis anemia Planned procedure colonoscopy Past Medical History Past Medical History: Includes Cardio: Dyslipidemia, CAD Surgery & Anesthesia Issues No known issue Meds Anticoagulation: No Beta Freya within 24 hr: No Reason Beta Freya not given: Pt. not on B-Freya Reported Medications Zolpidem Tartrate* (Zolpidem Tartrate*) 5 Mg Tablet, 5 MG PO QHS PRN for INSOMNIA, #30 TAB 11/29/18 Sennosides* (Senna Lax*) 8.6 Mg Tablet, 1 TAB PO DAILY PRN for CONSTIPATION, TAB 11/29/18 Guaifenesin-Dextromethorphan* (Robitussin* DM) 100MG/10MG/5ML Syrup, 10 ML PO Q4H PRN for COUGH, ML 11/29/18 Amino Acids/Protein Hydrolys (PRO-STAT LIQUID) 30 Ml Liquid.pkt, 30 ML PO BID 11/29/18 Ondansetron Hcl* (Ondansetron Hcl*) 4 Mg Tablet, 4 MG PO Q8 PRN for NAUSEA AND/OR VOMITING, TAB 11/29/18 Multivitamins* (Theragran*) 1 Tab Tab, 1 TAB PO DAILY, TAB 11/29/18 Metoprolol Tartrate* (Lopressor*) 50 Mg Tab, 50 MG PO BID, #60 TAB HOLD FOR SBP<110 OR HR<60 11/29/18 Melatonin (Melatonin) 3 Mg Tablet.sa, 3 MG PO HS, TAB.SA 11/29/18 Magnesium Oxide* (Magnesium Oxide*) 400 Mg Tablet, 400 MG PO BID, TAB 11/29/18 Levothyroxine Sodium* (Levothyroxine Sodium*) 125 Mcg Tablet, 125 MCG PO BEFORE BREAKFAST, #30 TAB 11/29/18 Hydrocodone/Acetaminophen ([place] 5-325 Tablet) 1 Each Tablet, 1 EACH PO Q4 PRN for SEVERE PAIN LEVEL 7-10, TAB 11/29/18 Hydralazine Hcl* (Hydralazine Hcl*) 25 Mg Tab, 25 MG PO BID, #60 TAB HOLD FOR SBP<110 11/29/18 Guaifenesin/Dextromethorphan (Tammie-Tussin Dm Syrup) 473 Ml Syrup, 10 ML PO Q4 PRN for COUGH 11/29/18 Ferrous Sulfate* (Ferrous Sulfate*) 325 Mg Tabec, 325 MG PO DAILY, TAB 11/29/18 Docusate Sodium* (Colace*) 100 Mg Capsule, 100 MG PO BID, #60 CAP 11/29/18 Clopidogrel Bisulfate (Clopidogrel) 75 Mg Tablet, 75 MG PO DAILY, #30 TAB 11/29/18 Benzocaine/Menthol* (Cepacol* Sore Throat Lozenges) 1 Each Lozenge, 1 EACH MM q2h PRN for SORE THROAT, LOZENGE 11/29/18 Atorvastatin* (Atorvastatin*) 40 Mg Tablet, 40 MG PO QHS, #30 TAB 11/29/18 Aspirin* (Aspirin* Chew) 81 Mg Tab.chew, 81 MG PO DAILY, TAB.CHEW 11/29/18 Ascorbic Acid (Vitamin C) 250 Mg Tab, 250 MG PO DAILY, TAB 11/29/18 Acetaminophen* (Acetaminophen*) 650 Mg Tablet, 650 MG PO Q6H PRN for MILD PAIN LEVEL 1-3, #30 TAB 11/29/18 Discontinued Reported Medications Metoprolol Succinate* (Toprol XL*) 25 Mg Tab.sr.24h, 25 MG PO DAILY, #30 TAB HOLD IF SBP<110 OR HR<60 11/29/18 Current Medications Acetaminophen (Tylenol Tab) 650 mg Q6H PRN PO MILD PAIN LEVEL 1-3; Start 11/29/18 at 18:00 Ascorbic Acid (Vitamin C) 250 mg DAILY PO Last administered on 11/30/18at 12:57; Admin Dose 250 MG; Start 11/30/18 at 09:00 Aspirin (Aspirin) 81 mg DAILY PO Last administered on 11/30/18at 12:57; Admin Dose 81 MG; Start 11/30/18 at 09:00 Atorvastatin Calcium (Lipitor) 40 mg QHS PO Last administered on 11/29/18at 20:35; Admin Dose 40 MG; Start 11/29/18 at 21:00 Docusate Sodium (Colace) 100 mg BID PO Last administered on 11/30/18at 12:57; Admin Dose 100 MG; Start 11/29/18 at 21:00 Ferrous Sulfate (Ferrous Sulfate (Ec)) 325 mg DAILY PO ; Start 11/30/18 at 09:00 Acetaminophen/ Hydrocodone Bitart ([place] (5/325)) 1 tab Q4H PRN PO SEVERE PAIN LEVEL 7-10; Start 11/29/18 at 18:00 Magnesium Oxide (Mag-Ox 400) 400 mg BID PO Last administered on 11/30/18at 12:57; Admin Dose 400 MG; Start 11/29/18 at 21:00 Multivitamins Therapeutic (Theragran) 1 tab DAILY PO Last administered on 11/30/18at 12:57; Admin Dose 1 TAB; Start 11/30/18 at 09:00 Ondansetron HCl (Zofran Tab) 4 mg Q8H PRN PO NAUSEA AND/OR VOMITING; Start 11/29/18 at 18:00 Senna (Senokot) 1 tab DAILY PRN PO CONSTIPATION; Start 11/29/18 at 18:00 Zolpidem Tartrate (Ambien) 5 mg QHS PRN PO INSOMNIA; Start 11/29/18 at 18:00 Metoprolol Tartrate (Lopressor) 25 mg BID PO Last administered on 11/30/18at 12:58; Admin Dose 25 MG; Start 11/30/18 at 09:00 Polyethylene Glycol (Miralax) 119 gm 2nd Dose (GI Prep) PO ; Start 11/30/18 at 1 5:00; Stop 11/30/18 at 19:00 Lactulose (Enulose) 20 gm Q4H PO Last administered on 11/30/18at 15:49; Admin Dose 20 GM; Start 11/30/18 at 10:00; Stop 11/30/18 at 18:01 Levothyroxine Sodium (Synthroid) 100 mcg AC BREAKFAST PO ; Start 12/01/18 at 07:00 Meds reviewed: Yes Allergies Coded Allergies: Sulfa (Sulfonamide Antibiotics) (Verified Allergy, Severe, 11/29/18) PER FACESHEET Allergies Reviewed: Yes Labs/Studies Labs Reviewed: Reviewed by anesthesiologist Result Diagram: 11/30/18 1125 11/29/18 1012 Laboratory Tests 11/30/18 11:25 test: N/A Studies: CXR (Lung volumes are low with compressive changes and left basilar atelectasis) Pre-procedure Exam Last vitals Vital Signs Date Temp Pulse Resp B/P (MAP) Pulse Ox O2 O2 Flow FiO2 Time Delivery Rate 11/30/18 97.8 72 16 119/58 98 14:03 (78) 11/30/18 Nasal 2.0 10:45 Cannula Airway: Adequate mouth opening Mallampati: Mallampati II Teeth: Normal Lung: Normal Heart: Normal ASA Physical Status ASA physical status: 2 Emergency: None Planned Anesthetic General/MAC: MAC Pre-operative Attestations Prior to commencing anesthesia and surgery, the patient was re-evaluated, there was verification of: *The patient's identity *The results of appropriate recent lab work and preoperative vital signs *The above evaluation not changing prior to induction *Anesthetic plan, risk benefits, alternative and complications discussed with patient/family; questions answered; patient/family understands, accepts and wishes to proceed. ROSA IBRAHIM Nov 30, 2018 17:45
[2018-11-30] MEDS: ATORVASTATIN 40 MG TAB PO SCH (21:11)
[2018-12-01] VITALS (15 sets, daily range): BP systolic 114–149; BP diastolic 51–71; PULSE 68–97; RESP 12–30
[2018-12-01] MEDS: LEVOTHYROXINE 100 MCG TAB PO SCH (05:20)
[2018-12-01] MEDS ORDERED: PROPOFOL 200 MG INJ ONE (07:00)
[2018-12-01] MEDS ORDERED: LEVOTHYROXINE 125 MCG TAB PO SCH (07:00)
[2018-12-01] MEDS: POTASSIUM CHLORIDE 50 ML IVPB SCH ×3 (08:02→09:57)
[2018-12-01] MEDS: MULTIVITAMINS THERAPEUTIC TAB PO SCH (08:57)
[2018-12-01] MEDS: ASCORBIC ACID 250 MG TAB PO SCH (08:57)
[2018-12-01] MEDS: FERROUS SULFATE (EC) 325 MG TAB PO SCH (08:58)
[2018-12-01] MEDS: DOCUSATE SODIUM 100 MG CAP PO SCH ×2 (08:58→20:31)
[2018-12-01] MEDS: MAGNESIUM OXIDE 400 MG TAB PO SCH ×2 (08:58→20:31)
[2018-12-01] MEDS: ASPIRIN 81 MG TAB PO SCH (08:59)
[2018-12-01] MEDS: METOPROLOL 50 MG TAB PO SCH ×2 (09:00→20:31)
[2018-12-01] MEDS ORDERED: LIDOCAINE 2% (SDV) 5 ML INJ ONE (12:42)
[2018-12-01] MEDS ORDERED: ETOMIDATE 20 MG INJ ONE (12:42)
[2018-12-01] MEDS ORDERED: LABETALOL HCL 20MG INJ IV PRN (13:00)
[2018-12-01] MEDS ORDERED: ALBUTEROL 0.083% (NEB) 2.5 MG/3 ML AMP HHN STA (13:54)
--- NOTE | 2018-12-01 14:00 | PN ---
Date/Time of Note Date/Time of Note DATE: 12/01/18 TIME: 13:56 Assessment/Plan VTE Prophylaxis Risk score (from [facility] [place]0 risk: 6 SCD applied (from [facility] [place]): Yes Pharmacological prophylaxis: NA/contraindicated Pharm contraindication: bleeding Lines/Catheters IV [facility] (from [facility] Saline Lock Urinary Cath still in place: No Assessment/Plan Hospital Course Patient is taken to colonoscopy, no acute events reported prior to procedure. Assessment/Plan -Anemia. Status post blood transfusion, continue to continue to monitor hemoglobin and hematocrit. Dr. Milian is following in hematology consultation. -GI bleed, status post EGD with notion of gastritis, continue PPI. Dr. Tubbs is following in gastroenterology consultation. -Coronary artery disease and peripheral vascular disease. Continue aspirin. -Hypothyroidism. Continue Synthroid. -Dyslipidemia. Continue Lipitor. -Hypertension. Continue Apresoline and Lopressor. Further recommendations based on clinical course. Plan of care discussed with Dr. Crouch. Result Diagram: 12/01/18 0423 12/01/18 0423 Results 24hrs Laboratory Tests Test 12/01/18 04:23 White Blood Count 7.3 # Red Blood Count 3.50 L Hemoglobin 9.9 L Hematocrit 31.0 L Mean Corpuscular Volume 88.6 Mean Corpuscular Hemoglobin 28.3 L Mean Corpuscular Hemoglobin Concent 31.9 L Red Cell Distribution Width 16.1 H Platelet Count 605 H Mean Platelet Volume 8.5 Immature Granulocytes % 0.400 Neutrophils % 68.6 Lymphocytes % 15.2 Monocytes % 8.5 Eosinophils % 6.2 Basophils % 1.1 Nucleated Red Blood Cells % 0.0 Immature Granulocytes # 0.030 Neutrophils # 5.0 Lymphocytes # 1.1 Monocytes # 0.6 Eosinophils # 0.5 Basophils # 0.1 Nucleated Red Blood Cells # 0.0 Prothrombin Time 14.9 Prothrombin Time Ratio 1.2 INR International Normalized Ratio 1.16 Activated Partial Thromboplast Time 33.5 Sodium Level 141 Potassium Level 3.1 L Chloride Level 108 # Carbon Dioxide Level 24 Anion Gap 9 # Blood Urea Nitrogen 10 Creatinine 0.59 Est Glomerular Filtrat Rate mL/min Glucose Level 78 Calcium Level 8.9 Exam/Review of Systems Exam Vitals Vital Signs Date Temp Pulse Resp B/P (MAP) Pulse Ox O2 O2 Flow FiO2 Time Delivery Rate 12/01/18 97.9 77 16 149/63 98 07:46 (91) 11/30/18 Nasal 2.0 10:45 Cannula Intake and Output 11/30/18 11/30/18 12/01/18 1515:00 23:00 07:00 IntakeIntake Total 480 ml 1070 ml OutputOutput Total 1 ml BalanceBalance 480 ml 1069 ml Exam Constitutional: alert, oriented Respiratory: clear to auscultation Cardiovascular: nl pulses Gastrointestinal: soft, non-tender Extremities: normal pulses Neurological: nl mental status Results Results 24hrs Laboratory Tests Test 12/01/18 04:23 White Blood Count 7.3 # Red Blood Count 3.50 L Hemoglobin 9.9 L Hematocrit 31.0 L Mean Corpuscular Volume 88.6 Mean Corpuscular Hemoglobin 28.3 L Mean Corpuscular Hemoglobin Concent 31.9 L Red Cell Distribution Width 16.1 H Platelet Count 605 H Mean Platelet Volume 8.5 Immature Granulocytes % 0.400 Neutrophils % 68.6 Lymphocytes % 15.2 Monocytes % 8.5 Eosinophils % 6.2 Basophils % 1.1 Nucleated Red Blood Cells % 0.0 Immature Granulocytes # 0.030 Neutrophils # 5.0 Lymphocytes # 1.1 Monocytes # 0.6 Eosinophils # 0.5 Basophils # 0.1 Nucleated Red Blood Cells # 0.0 Prothrombin Time 14.9 Prothrombin Time Ratio 1.2 INR International Normalized Ratio 1.16 Activated Partial Thromboplast Time 33.5 Sodium Level 141 Potassium Level 3.1 L Chloride Level 108 # Carbon Dioxide Level 24 Anion Gap 9 # Blood Urea Nitrogen 10 Creatinine 0.59 Est Glomerular Filtrat Rate mL/min Glucose Level 78 Calcium Level 8.9 Medications Medication Current Medications Acetaminophen (Tylenol Tab) 650 mg Q6H PRN PO MILD PAIN LEVEL 1-3; Start 11/29/18 at 18:00 Ascorbic Acid (Vitamin C) 250 mg DAILY PO Last administered on 11/30/18at 12:57; Admin Dose 250 MG; Start 11/30/18 at 09:00 Aspirin (Aspirin) 81 mg DAILY PO Last administered on 11/30/18at 12:57; Admin Dose 81 MG; Start 11/30/18 at 09:00 Atorvastatin Calcium (Lipitor) 40 mg QHS PO Last administered on 11/30/18at 21:11; Admin Dose 40 MG; Start 11/29/18 at 21:00 Docusate Sodium (Colace) 100 mg BID PO Last administered on 11/30/18at 21:11; Admin Dose 100 MG; Start 11/29/18 at 21:00 Ferrous Sulfate (Ferrous Sulfate (Ec)) 325 mg DAILY PO ; Start 11/30/18 at 09:00 Acetaminophen/ Hydrocodone Bitart ([place] (5/325)) 1 tab Q4H PRN PO SEVERE PAIN LEVEL 7-10; Start 11/29/18 at 18:00 Magnesium Oxide (Mag-Ox 400) 400 mg BID PO Last administered on 11/30/18at 21:11; Admin Dose 400 MG; Start 11/29/18 at 21:00 Multivitamins Therapeutic (Theragran) 1 tab DAILY PO Last administered on 11/30/18at 12:57; Admin Dose 1 TAB; Start 11/30/18 at 09:00 Ondansetron HCl (Zofran Tab) 4 mg Q8H PRN PO NAUSEA AND/OR VOMITING; Start 11/29/18 at 18:00 Senna (Senokot) 1 tab DAILY PRN PO CONSTIPATION; Start 11/29/18 at 18:00 Zolpidem Tartrate (Ambien) 5 mg QHS PRN PO INSOMNIA; Start 11/29/18 at 18:00 Metoprolol Tartrate (Lopressor) 25 mg BID PO Last administered on 11/30/18at 21:12; Admin Dose 25 MG; Start 11/30/18 at 09:00 Levothyroxine Sodium (Synthroid) 100 mcg AC BREAKFAST PO ; Start 12/01/18 at 07:00 Labetalol HCl (Labetalol) 5 mg PACU ORDER PRN IV HIGH BLOOD PRESSURE; Start 12/01/18 at 13:00; Stop 12/01/18 at 20:00 RODRIGUE TOURE Dec 01, 2018 14:00
[2018-12-01] MEDS ORDERED: ALBUTEROL 0.083% (NEB) 2.5 MG/3 ML AMP ONE (14:04)
[2018-12-01] MEDS: ATORVASTATIN 40 MG TAB PO SCH (20:31)
[2018-12-02 01:58] VITALS: BP 116/57; PULSE 69; RESP 16
[2018-12-02] MEDS: LEVOTHYROXINE 100 MCG TAB PO SCH (06:40)
[2018-12-02 07:29] VITALS: BP 160/63; PULSE 83; RESP 18
[2018-12-02] MEDS: DOCUSATE SODIUM 100 MG CAP PO SCH ×2 (09:20→20:41)
[2018-12-02] MEDS: MAGNESIUM OXIDE 400 MG TAB PO SCH ×2 (09:20→20:41)
[2018-12-02] MEDS: ASPIRIN 81 MG TAB PO SCH (09:21)
[2018-12-02] MEDS: ASCORBIC ACID 250 MG TAB PO SCH (09:21)
[2018-12-02] MEDS: MULTIVITAMINS THERAPEUTIC TAB PO SCH (09:21)
[2018-12-02] MEDS: METOPROLOL 50 MG TAB PO SCH ×2 (09:22→20:41)
[2018-12-02] MEDS: FERROUS SULFATE (EC) 325 MG TAB PO SCH (09:23)
--- NOTE | 2018-12-02 14:22 | PAC ---
Date/Time of Note Date/Time of Note DATE: 12/02/18 TIME: 14:21 Post-Anesthesia Notes Post-Anesthesia Note Last documented vital signs Vital Signs Date Temp Pulse Resp B/P (MAP) Pulse Ox O2 O2 Flow FiO2 Time Delivery Rate 12/02/18 97.7 83 18 160/63 92 07:29 (95) 12/01/18 98 80 20 149/78 95 Nasal 1800 Cannula 12/01/18 4.0 14:27 Activity: WNL Respiratory function: WNL Cardiovascular function: WNL Mental status: Baseline Pain reasonably controlled: Yes Hydration appropriate: Yes Nausea/Vomiting absent: Yes RHINA RIVERS DO Dec 02, 2018 14:22
--- NOTE | 2018-12-02 14:26 | PN ---
Date/Time of Note Date/Time of Note DATE: 12/02/18 TIME: 14:25 Assessment/Plan VTE Prophylaxis Risk score (from [facility] [place])>0 risk: 6 SCD applied (from [facility] [place]): No SCD contraindicated: other Pharmacological prophylaxis: other Lines/Catheters IV [facility] Type (from [facility] Saline Lock Urinary Cath still in place: No Assessment/Plan Assessment/Plan Assessment/Plan - Hypokalemia- replace K; am BMP -Anemia. Status post blood transfusion, continue to continue to monitor hemo globin and hematocrit. - Dr. Milian is following in hematology consultation. -GI bleed, status post EGD with notion of gastritis, continue PPI. -Dr. Tubbs is following in gastroenterology consultation. -Coronary artery disease and peripheral vascular disease. Continue aspirin. -Hypothyroidism. Continue Synthroid. -Dyslipidemia. Continue Lipitor. -Hypertension. Continue Apresoline and Lopressor. Further recommendations based on clinical course. Plan of care discussed with Dr. Crouch. Result Diagram: 12/02/18 0448 12/01/18 0423 Results 24hrs Laboratory Tests Test 12/02/18 04:48 White Blood Count 8.8 # Red Blood Count 3.58 L Hemoglobin 10.3 L Hematocrit 32.3 L Mean Corpuscular Volume 90.2 Mean Corpuscular Hemoglobin 28.8 L Mean Corpuscular Hemoglobin Concent 31.9 L Red Cell Distribution Width 16.2 H Platelet Count 565 H Mean Platelet Volume 8.7 Immature Granulocytes % 0.300 Neutrophils % 70.3 Lymphocytes % 15.6 Monocytes % 6.5 Eosinophils % 6.5 Basophils % 0.8 Nucleated Red Blood Cells % 0.0 Immature Granulocytes # 0.030 Neutrophils # 6.2 Lymphocytes # 1.4 Monocytes # 0.6 Eosinophils # 0.6 H Basophils # 0.1 Nucleated Red Blood Cells # 0.0 Subjective 24 Hr Interval Summary Free Text/Dictation nad seems comfortable hypokalemia- will replace no new issues reported last night Eyes: no complaints ENT: no complaints Respiratory: no complaints Cardiovascular: no complaints Gastrointestinal: no complaints Exam/Review of Systems Exam Vitals Vital Signs Date Temp Pulse Resp B/P (MAP) Pulse Ox O2 O2 Flow FiO2 Time Delivery Rate 12/02/18 97.7 83 18 160/63 92 07:29 (95) 12/01/18 Nasal 14:54 Cannula 12/01/18 4.0 14:27 Intake and Output 12/01/18 12/01/18 12/02/18 1515:00 23:00 07:00 IntakeIntake Total 150 ml 600 ml 240 ml BalanceBalance 150 ml 600 ml 240 ml Constitutional: alert, well developed Psych: nl mood/affect Head: atraumatic Eyes: nl lids, nl sclera ENMT: nl external ears & nose Neck: non-tender Respiratory: clear to auscultation (bilaterally) Cardiovascular: nl pulses, other (1s2) Gastrointestinal: soft, non-tender Musculoskeletal: muscle weakness Extremities: normal pulses Neurological: nl speech, other (alert/reponsive) Lymph: nontender Results Results 24hrs Laboratory Tests Test 12/02/18 04:48 White Blood Count 8.8 # Red Blood Count 3.58 L Hemoglobin 10.3 L Hematocrit 32.3 L Mean Corpuscular Volume 90.2 Mean Corpuscular Hemoglobin 28.8 L Mean Corpuscular Hemoglobin Concent 31.9 L Red Cell Distribution Width 16.2 H Platelet Count 565 H Mean Platelet Volume 8.7 Immature Granulocytes % 0.300 Neutrophils % 70.3 Lymphocytes % 15.6 Monocytes % 6.5 Eosinophils % 6.5 Basophils % 0.8 Nucleated Red Blood Cells % 0.0 Immature Granulocytes # 0.030 Neutrophils # 6.2 Lymphocytes # 1.4 Monocytes # 0.6 Eosinophils # 0.6 H Basophils # 0.1 Nucleated Red Blood Cells # 0.0 Medications Medication Current Medications Acetaminophen (Tylenol Tab) 650 mg Q6H PRN PO MILD PAIN LEVEL 1-3; Start 11/29/18 at 18:00 Ascorbic Acid (Vitamin C) 250 mg DAILY PO Last administered on 12/02/18at 09:21; Admin Dose 250 MG; Start 11/30/18 at 09:00 Aspirin (Aspirin) 81 mg DAILY PO Last administered on 12/02/18at 09:21; Admin Dose 81 MG; Start 11/30/18 at 09:00 Atorvastatin Calcium (Lipitor) 40 mg QHS PO Last administered on 12/01/18at 20:31; Admin Dose 40 MG; Start 11/29/18 at 21:00 Docusate Sodium (Colace) 100 mg BID PO Last administered on 12/02/18at 09:20; Admin Dose 100 MG; Start 11/29/18 at 21:00 Ferrous Sulfate (Ferrous Sulfate (Ec)) 325 mg DAILY PO Last administered on 12/02/18 09:23; Admin Dose 325 MG; Start 11/30/18 at 09:00 Acetaminophen/ Hydrocodone Bitart ([place] (5/325)) 1 tab Q4H PRN PO SEVERE PAIN LEVEL 7-10; Start 11/29/18 at 18:00 Magnesium Oxide (Mag-Ox 400) 400 mg BID PO Last administered on 12/02/18 09:20; Admin Dose 400 MG; Start 11/29/18 at 21:00 Multivitamins Therapeutic (Theragran) 1 tab DAILY PO Last administered on 12/02/18 09:21; Admin Dose 1 TAB; Start 11/30/18 at 09:00 Ondansetron HCl (Zofran Tab) 4 mg Q8H PRN PO NAUSEA AND/OR VOMITING; Start 11/29/18 at 18:00 Senna (Senokot) 1 tab DAILY PRN PO CONSTIPATION; Start 11/29/18 at 18:00 Zolpidem Tartrate (Ambien) 5 mg QHS PRN PO INSOMNIA; Start 11/29/18 at 18:00 Metoprolol Tartrate (Lopressor) 25 mg BID PO Last administered on 12/02/18 09:22; Admin Dose 25 MG; Start 11/30/18 at 09:00 Levothyroxine Sodium (Synthroid) 100 mcg AC BREAKFAST PO Last administered on 12/02/18 06:40; Admin Dose 100 MCG; Start 12/01/18 at 07:00 DEA PLUNKETT Dec 02, 2018 14:26
[2018-12-02 14:53] VITALS: BP 118/58; PULSE 100; RESP 16
[2018-12-02 19:52] VITALS: BP 134/63; PULSE 78; RESP 16
[2018-12-02] MEDS: ATORVASTATIN 40 MG TAB PO SCH (20:41)
[2018-12-03 01:28] VITALS: BP 130/60; PULSE 72; RESP 17
[2018-12-03] MEDS: LEVOTHYROXINE 100 MCG TAB PO SCH (06:19)
[2018-12-03 07:41] VITALS: BP 145/66; PULSE 72; RESP 18
[2018-12-03] MEDS: FERROUS SULFATE (EC) 325 MG TAB PO SCH (08:45)
[2018-12-03] MEDS: MAGNESIUM OXIDE 400 MG TAB PO SCH ×2 (08:46→20:09)
[2018-12-03] MEDS: ASCORBIC ACID 250 MG TAB PO SCH (08:46)
[2018-12-03] MEDS: MULTIVITAMINS THERAPEUTIC TAB PO SCH (08:46)
[2018-12-03] MEDS: ASPIRIN 81 MG TAB PO SCH (08:46)
[2018-12-03] MEDS: DOCUSATE SODIUM 100 MG CAP PO SCH ×2 (08:47→20:08)
[2018-12-03] MEDS: METOPROLOL 50 MG TAB PO SCH ×2 (08:47→20:14)
--- NOTE | 2018-12-03 12:50 | PN ---
Date/Time of Note Date/Time of Note DATE: 12/03/18 TIME: 12:50 Assessment/Plan VTE Prophylaxis Risk score (from [facility]0 risk: 4 SCD applied (from [facility]): Yes Pharmacological prophylaxis: LMWH Lines/Catheters [facility] Saline Lock Urinary Cath still in place: No Assessment/Plan Hospital Course -Anemia. Status post blood transfusion, continue to continue to monitor he moglobin and hematocrit. Dr. Milian is following in hematology consultation. -GI bleed, status post EGD with notion of gastritis, continue PPI. Dr. Tubbs is following in gastroenterology consultation. -Coronary artery disease and peripheral vascular disease. Continue aspirin. -Hypothyroidism. Continue Synthroid. -Dyslipidemia. Continue Lipitor. -Hypertension. Continue Apresoline and Lopressor. Result Diagram: 12/03/18 0500 12/01/18 0423 Results 24hrs Laboratory Tests Test 12/03/18 05:00 White Blood Count 7.4 Red Blood Count 3.47 L Hemoglobin 9.9 L Hematocrit 30.7 L Mean Corpuscular Volume 88.5 Mean Corpuscular Hemoglobin 28.5 L Mean Corpuscular Hemoglobin Concent 32.2 Red Cell Distribution Width 16.0 H Platelet Count 398 # Mean Platelet Volume 9.5 Immature Granulocytes % 0.400 Neutrophils % 65.0 Lymphocytes % 16.3 Monocytes % 8.2 Eosinophils % 9.0 H Basophils % 1.1 Nucleated Red Blood Cells % 0.0 Immature Granulocytes # 0.030 Neutrophils # 4.8 Lymphocytes # 1.2 Monocytes # 0.6 Eosinophils # 0.7 H Basophils # 0.1 Nucleated Red Blood Cells # 0.0 Subjective 24 Hr Interval Summary Free Text/Dictation Patient has no complaints Exam/Review of Systems Exam Vitals Vital Signs Date Temp Pulse Resp B/P (MAP) Pulse Ox O2 O2 Flow FiO2 Time Delivery Rate 12/03/18 Nasal 2.0 08:00 Cannula 12/03/18 97.7 72 18 145/66 94 07:41 (92) Intake and Output 12/02/18 12/02/18 12/03/18 1515:00 23:00 07:00 IntakeIntake Total 960 ml 240 ml BalanceBalance 960 ml 240 ml Constitutional: frail Head: normocephalic, atraumatic Neck: supple Respiratory: diminished breath sounds Cardiovascular: regular rate and rhythm Gastrointestinal: soft, non-tender Extremities: normal pulses Results Results 24hrs Laboratory Tests Test 12/03/18 05:00 White Blood Count 7.4 Red Blood Count 3.47 L Hemoglobin 9.9 L Hematocrit 30.7 L Mean Corpuscular Volume 88.5 Mean Corpuscular Hemoglobin 28.5 L Mean Corpuscular Hemoglobin Concent 32.2 Red Cell Distribution Width 16.0 H Platelet Count 398 # Mean Platelet Volume 9.5 Immature Granulocytes % 0.400 Neutrophils % 65.0 Lymphocytes % 16.3 Monocytes % 8.2 Eosinophils % 9.0 H Basophils % 1.1 Nucleated Red Blood Cells % 0.0 Immature Granulocytes # 0.030 Neutrophils # 4.8 Lymphocytes # 1.2 Monocytes # 0.6 Eosinophils # 0.7 H Basophils # 0.1 Nucleated Red Blood Cells # 0.0 Medications Medication Current Medications Acetaminophen (Tylenol Tab) 650 mg Q6H PRN PO MILD PAIN LEVEL 1-3; Start 11/29/18 at 18:00 Ascorbic Acid (Vitamin C) 250 mg DAILY PO Last administered on 12/03/18at 08:46; Admin Dose 250 MG; Start 11/30/18 at 09:00 Aspirin (Aspirin) 81 mg DAILY PO Last administered on 12/03/18 08:46; Admin Dose 81 MG; Start 11/30/18 at 09:00 Atorvastatin Calcium (Lipitor) 40 mg QHS PO Last administered on 12/02/18 20:41; Admin Dose 40 MG; Start 11/29/18 at 21:00 Docusate Sodium (Colace) 100 mg BID PO Last administered on 12/03/18 08:47; Admin Dose 100 MG; Start 11/29/18 at 21:00 Ferrous Sulfate (Ferrous Sulfate (Ec)) 325 mg DAILY PO Last administered on 12/03/18 08:45; Admin Dose 325 MG; Start 11/30/18 at 09:00 Acetaminophen/ Hydrocodone Bitart ([place] (5/325)) 1 tab Q4H PRN PO SEVERE PAIN LEVEL 7-10; Start 11/29/18 at 18:00 Magnesium Oxide (Mag-Ox 400) 400 mg BID PO Last administered on 12/03/18 08:46; Admin Dose 400 MG; Start 11/29/18 at 21:00 Multivitamins Therapeutic (Theragran) 1 tab DAILY PO Last administered on 12/03/18 08:46; Admin Dose 1 TAB; Start 11/30/18 at 09:00 Ondansetron HCl (Zofran Tab) 4 mg Q8H PRN PO NAUSEA AND/OR VOMITING; Start 11/29/18 at 18:00 Senna (Senokot) 1 tab DAILY PRN PO CONSTIPATION; Start 11/29/18 at 18:00 Zolpidem Tartrate (Ambien) 5 mg QHS PRN PO INSOMNIA; Start 11/29/18 at 18:00 Metoprolol Tartrate (Lopressor) 25 mg BID PO Last administered on 12/03/18at 08:47; Admin Dose 25 MG; Start 11/30/18 at 09:00 Levothyroxine Sodium (Synthroid) 100 mcg AC BREAKFAST PO Last administered on 12/03/18 06:19; Admin Dose 100 MCG; Start 12/01/18 at 07:00 ALIVIA VALENCIA Dec 03, 2018 12:50
[2018-12-03 14:35] VITALS: BP 110/52; PULSE 77; RESP 15
--- NOTE | 2018-12-03 17:05 | CONS ---
Assessment/Plan Assessment/Plan Assessment/Plan (Daily) #Anemia -pt is noted to have a normocytic anemia -agree with GI evaluation to ensure no evidence of GI bleed -need to ensure there are no other contributing factors to patients anemia. 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 Consider immunofixation -r/o hemolysis, check LDH, retic , coags wnl - haptoglobin- 299 elevated -r/o iron deficiency: check iron panel, ferritin- 50.9 wnl -in case of MDS, will check epo level to see if patient would benefit from Procrit Patient sen in collaboration with Dr Milian Consultation Date/Type/Reason Admit Date/Time Nov 29, 2018 at 10:29 Initial Consult Date 11/30/18 Type of Consult ONCOLOGY Reason for Consultation ANEMIA Requesting Provider: EULALIO FITZGERALD MD Date/Time of Note DATE: 12/03/18 TIME: 16:57 24 HR Interval Summary Free Text/Dictation resting; seems comfortable no new events reported overnight Constitutional: requiring O2 Detailed Summary Eyes: no complaints ENT: no complaints Respiratory: no complaints Cardiovascular: no complaints Gastrointestinal: no complaints Genitourinary: no complaints Musculoskeletal: restricted range of motion Skin: no complaints Exam/Review of Systems Exam Vitals Vital Signs Date Temp Pulse Resp B/P (MAP) Pulse Ox O2 O2 Flow FiO2 Time Delivery Rate 12/03/18 97.8 77 15 110/52 90 14:35 (71) 12/03/18 Nasal 2.0 08:00 Cannula Intake and Output 12/02/18 12/02/18 12/03/18 1414:59 22:59 06:59 IntakeIntake Total 960 ml 240 ml BalanceBalance 960 ml 240 ml Constitutional: alert, well developed Psych: nl mood/affect Head: normocephalic Eyes: EOMI, nl lids, nl sclera ENMT: nl external ears & nose Neck: supple Respiratory: clear to auscultation Cardiovascular: nl pulses, other (s1s2) Gastrointestinal: soft, non-tender Musculoskeletal: nl extremities to inspection Extremities: normal pulses Neurological: nl speech, other (responsive) Lymph: nontender Results Result Diagram: 12/03/18 0500 12/01/18 0423 Results 24hrs Laboratory Tests Test 12/03/18 05:00 White Blood Count 7.4 Red Blood Count 3.47 L Hemoglobin 9.9 L Hematocrit 30.7 L Mean Corpuscular Volume 88.5 Mean Corpuscular Hemoglobin 28.5 L Mean Corpuscular Hemoglobin Concent 32.2 Red Cell Distribution Width 16.0 H Platelet Count 398 # Mean Platelet Volume 9.5 Immature Granulocytes % 0.400 Neutrophils % 65.0 Lymphocytes % 16.3 Monocytes % 8.2 Eosinophils % 9.0 H Basophils % 1.1 Nucleated Red Blood Cells % 0.0 Immature Granulocytes # 0.030 Neutrophils # 4.8 Lymphocytes # 1.2 Monocytes # 0.6 Eosinophils # 0.7 H Basophils # 0.1 Nucleated Red Blood Cells # 0.0 Medications Medication Current Medications Acetaminophen (Tylenol Tab) 650 mg Q6H PRN PO MILD PAIN LEVEL 1-3; Start 11/29/18 at 18:00 Ascorbic Acid (Vitamin C) 250 mg DAILY PO Last administered on 12/03/18at 08:46; Admin Dose 250 MG; Start 11/30/18 at 09:00 Aspirin (Aspirin) 81 mg DAILY PO Last administered on 12/03/18 08:46; Admin Dose 81 MG; Start 11/30/18 at 09:00 Atorvastatin Calcium (Lipitor) 40 mg QHS PO Last administered on 12/02/18at 20:41; Admin Dose 40 MG; Start 11/29/18 at 21:00 Docusate Sodium (Colace) 100 mg BID PO Last administered on 12/03/18at 08:47; Admin Dose 100 MG; Start 11/29/18 at 21:00 Ferrous Sulfate (Ferrous Sulfate (Ec)) 325 mg DAILY PO Last administered on 12/03/18 08:45; Admin Dose 325 MG; Start 11/30/18 at 09:00 Acetaminophen/ Hydrocodone Bitart ([place] (5/325)) 1 tab Q4H PRN PO SEVERE PAIN LEVEL 7-10; Start 11/29/18 at 18:00 Magnesium Oxide (Mag-Ox 400) 400 mg BID PO Last administered on 12/03/18at 08:46; Admin Dose 400 MG; Start 11/29/18 at 21:00 Multivitamins Therapeutic (Theragran) 1 tab DAILY PO Last administered on 12/03/18 08:46; Admin Dose 1 TAB; Start 11/30/18 at 09:00 Ondansetron HCl (Zofran Tab) 4 mg Q8H PRN PO NAUSEA AND/OR VOMITING; Start 11/29/18 at 18:00 Senna (Senokot) 1 tab DAILY PRN PO CONSTIPATION; Start 11/29/18 at 18:00 Zolpidem Tartrate (Ambien) 5 mg QHS PRN PO INSOMNIA; Start 11/29/18 at 18:00 Metoprolol Tartrate (Lopressor) 25 mg BID PO Last administered on 12/03/18at 08:47; Admin Dose 25 MG; Start 11/30/18 at 09:00 Levothyroxine Sodium (Synthroid) 100 mcg AC BREAKFAST PO Last administered on 12/03/18 06:19; Admin Dose 100 MCG; Start 12/01/18 at 07:00 DEA PLUNKETT Dec 03, 2018 5:05 pm
[2018-12-03 19:57] VITALS: BP 109/51; PULSE 84; RESP 16
[2018-12-03] MEDS: ATORVASTATIN 40 MG TAB PO SCH (20:08)
[2018-12-04 01:58] VITALS: BP 107/58; PULSE 84; RESP 16
[2018-12-04] MEDS: LEVOTHYROXINE 100 MCG TAB PO SCH (06:14)
[2018-12-04 07:32] VITALS: BP 128/60; PULSE 83; RESP 16
[2018-12-04] MEDS: MAGNESIUM OXIDE 400 MG TAB PO SCH ×2 (09:17→20:25)
[2018-12-04] MEDS: METOPROLOL 50 MG TAB PO SCH ×2 (09:17→20:28)
[2018-12-04] MEDS: ASPIRIN 81 MG TAB PO SCH (09:18)
[2018-12-04] MEDS: DOCUSATE SODIUM 100 MG CAP PO SCH ×2 (09:18→20:25)
[2018-12-04] MEDS: MULTIVITAMINS THERAPEUTIC TAB PO SCH (09:18)
[2018-12-04] MEDS: FERROUS SULFATE (EC) 325 MG TAB PO SCH (09:18)
[2018-12-04] MEDS: ASCORBIC ACID 250 MG TAB PO SCH (09:18)
--- NOTE | 2018-12-04 12:31 | CONS ---
Assessment/Plan Assessment/Plan Assessment/Plan (Daily) #Anemia -pt is noted to have a normocytic anemia -agree with GI evaluation to ensure no evidence of GI bleed -need to ensure there are no other contributing factors to patients anemia. 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 Consider immunofixation -r/o hemolysis, check LDH, retic , coags wnl - haptoglobin- 299 elevated -r/o iron deficiency: check iron panel, ferritin- 50.9 wnl -in case of MDS, will check epo level to see if patient would benefit from procrit Patient seen in collaboration with Dr Milian Consultation Date/Type/Reason Admit Date/Time Nov 29, 2018 at 10:29 am Initial Consult Date 11/30/18 Type of Consult oncology Requesting Provider: EULALIO FITZGERALD MD Date/Time of Note DATE: 12/04/18 TIME: 12:31 24 HR Interval Summary Free Text/Dictation Awake; denies any pain - daughter at bedside- all Qs answered. no new issues reported last night Constitutional: requiring O2 Detailed Summary Eyes: no complaints ENT: no complaints Respiratory: pleuritic pain Cardiovascular: no complaints Gastrointestinal: no complaints Genitourinary: no complaints Musculoskeletal: no complaints Skin: no complaints Exam/Review of Systems Exam Vitals Vital Signs Date Temp Pulse Resp B/P (MAP) Pulse Ox O2 O2 Flow FiO2 Time Delivery Rate 12/04/18 Nasal 2.0 08:00 Cannula 12/04/18 98.1 83 16 128/60 91 07:32 (82) Intake and Output 12/03/18 12/03/18 12/04/18 1515:00 23:00 07:00 IntakeIntake Total 960 ml 480 ml BalanceBalance 960 ml 480 ml Constitutional: alert, well developed Psych: nl mood/affect Head: normocephalic Eyes: EOMI, nl lids ENMT: nl external ears & nose Neck: non-tender Respiratory: clear to auscultation Cardiovascular: nl pulses Gastrointestinal: soft Results Result Diagram: 12/04/18 0439 12/01/18 0423 Results 24hrs Laboratory Tests Test 12/04/18 04:39 White Blood Count 7.9 Red Blood Count 3.50 L Hemoglobin 10.0 L Hematocrit 31.4 L Mean Corpuscular Volume 89.7 Mean Corpuscular Hemoglobin 28.6 L Mean Corpuscular Hemoglobin Concent 31.8 L Red Cell Distribution Width 15.9 H Platelet Count 493 #H Mean Platelet Volume 8.7 Immature Granulocytes % 0.400 Neutrophils % 62.5 Lymphocytes % 20.1 Monocytes % 7.5 Eosinophils % 8.5 H Basophils % 1.0 Nucleated Red Blood Cells % 0.0 Immature Granulocytes # 0.030 Neutrophils # 4.9 Lymphocytes # 1.6 Monocytes # 0.6 Eosinophils # 0.7 H Basophils # 0.1 Nucleated Red Blood Cells # 0.0 Medications Medication Current Medications Acetaminophen (Tylenol Tab) 650 mg Q6H PRN PO MILD PAIN LEVEL 1-3; Start 11/29/18 at 18:00 Ascorbic Acid (Vitamin C) 250 mg DAILY PO Last administered on 12/04/18 09:18; Admin Dose 250 MG; Start 11/30/18 at 09:00 Aspirin (Aspirin) 81 mg DAILY PO Last administered on 12/04/18 09:18; Admin Dose 81 MG; Start 11/30/18 at 09:00 Atorvastatin Calcium (Lipitor) 40 mg QHS PO Last administered on 12/03/18 20:08; Admin Dose 40 MG; Start 11/29/18 at 21:00 Docusate Sodium (Colace) 100 mg BID PO Last administered on 12/04/18 09:18; Admin Dose 100 MG; Start 11/29/18 at 21:00 Ferrous Sulfate (Ferrous Sulfate (Ec)) 325 mg DAILY PO Last administered on 12/04/18 09:18; Admin Dose 325 MG; Start 11/30/18 at 09:00 Acetaminophen/ Hydrocodone Bitart ([place] (5/325)) 1 tab Q4H PRN PO SEVERE PAIN LEVEL 7-10; Start 11/29/18 at 18:00 Magnesium Oxide (Mag-Ox 400) 400 mg BID PO Last administered on 12/04/18 09:17; Admin Dose 400 MG; Start 11/29/18 at 21:00 Multivitamins Therapeutic (Theragran) 1 tab DAILY PO Last administered on 12/04/18 09:18; Admin Dose 1 TAB; Start 11/30/18 at 09:00 Ondansetron HCl (Zofran Tab) 4 mg Q8H PRN PO NAUSEA AND/OR VOMITING; Start 11/29/18 at 18:00 Senna (Senokot) 1 tab DAILY PRN PO CONSTIPATION; Start 11/29/18 at 18:00 Zolpidem Tartrate (Ambien) 5 mg QHS PRN PO INSOMNIA; Start 11/29/18 at 18:00 Metoprolol Tartrate (Lopressor) 25 mg BID PO Last administered on 12/04/18at 09:17; Admin Dose 25 MG; Start 11/30/18 at 09:00 Levothyroxine Sodium (Synthroid) 100 mcg AC BREAKFAST PO Last administered on 12/04/18at 06:14; Admin Dose 100 MCG; Start 12/01/18 at 07:00 Guaifenesin/ Dextromethorphan (Robitussin Dm Liquid Cup) 5 ml Q6 PRN PO COUGH; Start 12/04/18 at 12:00 DEA PLUNKETT Dec 04, 2018 12:31 pm
--- NOTE | 2018-12-04 12:40 | PN ---
Date/Time of Note Date/Time of Note DATE: 12/04/18 TIME: 12:39 Assessment/Plan VTE Prophylaxis Risk score (from Ns)>0 risk: 6 SCD applied (from Ns): Yes Pharmacological prophylaxis: LMWH Lines/Catheters IV C[facility]ter [facility] (from [facility] Saline Lock Urinary Cath still in place: No Assessment/Plan Hospital Course -Anemia. Status post blood transfusion, continue to continue to monitor he moglobin and hematocrit. Dr. Milian is following in hematology consultation. -GI bleed, status post EGD with notion of gastritis, continue PPI. Dr. Tubbs is following in gastroenterology consultation. -Coronary artery disease and peripheral vascular disease. Continue aspirin. -Hypothyroidism. Continue Synthroid. -Dyslipidemia. Continue Lipitor. -Hypertension. Continue Apresoline and Lopressor. Result Diagram: 12/04/18 0439 12/01/18 0423 Results 24hrs Laboratory Tests Test 12/04/18 04:39 White Blood Count 7.9 Red Blood Count 3.50 L Hemoglobin 10.0 L Hematocrit 31.4 L Mean Corpuscular Volume 89.7 Mean Corpuscular Hemoglobin 28.6 L Mean Corpuscular Hemoglobin Concent 31.8 L Red Cell Distribution Width 15.9 H Platelet Count 493 #H Mean Platelet Volume 8.7 Immature Granulocytes % 0.400 Neutrophils % 62.5 Lymphocytes % 20.1 Monocytes % 7.5 Eosinophils % 8.5 H Basophils % 1.0 Nucleated Red Blood Cells % 0.0 Immature Granulocytes # 0.030 Neutrophils # 4.9 Lymphocytes # 1.6 Monocytes # 0.6 Eosinophils # 0.7 H Basophils # 0.1 Nucleated Red Blood Cells # 0.0 Subjective 24 Hr Interval Summary Free Text/Dictation Patient has no complaints Exam/Review of Systems Exam Vitals Vital Signs Date Temp Pulse Resp B/P (MAP) Pulse Ox O2 O2 Flow FiO2 Time Delivery Rate 12/04/18 Nasal 2.0 08:00 Cannula 12/04/18 98.1 83 16 128/60 91 07:32 (82) Intake and Output 12/03/18 12/03/18 12/04/18 1515:00 23:00 07:00 IntakeIntake Total 960 ml 480 ml BalanceBalance 960 ml 480 ml Constitutional: well developed Head: normocephalic, atraumatic Neck: supple Respiratory: diminished breath sounds Cardiovascular: regular rate and rhythm Gastrointestinal: soft, non-tender Extremities: normal pulses Results Results 24hrs Laboratory Tests Test 12/04/18 04:39 White Blood Count 7.9 Red Blood Count 3.50 L Hemoglobin 10.0 L Hematocrit 31.4 L Mean Corpuscular Volume 89.7 Mean Corpuscular Hemoglobin 28.6 L Mean Corpuscular Hemoglobin Concent 31.8 L Red Cell Distribution Width 15.9 H Platelet Count 493 #H Mean Platelet Volume 8.7 Immature Granulocytes % 0.400 Neutrophils % 62.5 Lymphocytes % 20.1 Monocytes % 7.5 Eosinophils % 8.5 H Basophils % 1.0 Nucleated Red Blood Cells % 0.0 Immature Granulocytes # 0.030 Neutrophils # 4.9 Lymphocytes # 1.6 Monocytes # 0.6 Eosinophils # 0.7 H Basophils # 0.1 Nucleated Red Blood Cells # 0.0 Medications Medication Current Medications Acetaminophen (Tylenol Tab) 650 mg Q6H PRN PO MILD PAIN LEVEL 1-3; Start 11/29/18 at 18:00 Ascorbic Acid (Vitamin C) 250 mg DAILY PO Last administered on 12/04/18 09:18; Admin Dose 250 MG; Start 11/30/18 at 09:00 Aspirin (Aspirin) 81 mg DAILY PO Last administered on 12/04/18 09:18; Admin Dose 81 MG; Start 11/30/18 at 09:00 Atorvastatin Calcium (Lipitor) 40 mg QHS PO Last administered on 12/03/18 20:08; Admin Dose 40 MG; Start 11/29/18 at 21:00 Docusate Sodium (Colace) 100 mg BID PO Last administered on 12/04/18 09:18; Admin Dose 100 MG; Start 11/29/18 at 21:00 Ferrous Sulfate (Ferrous Sulfate (Ec)) 325 mg DAILY PO Last administered on 12/04/18 09:18; Admin Dose 325 MG; Start 11/30/18 at 09:00 Acetaminophen/ Hydrocodone Bitart ([place] (5/325)) 1 tab Q4H PRN PO SEVERE PAIN LEVEL 7-10; Start 11/29/18 at 18:00 Magnesium Oxide (Mag-Ox 400) 400 mg BID PO Last administered on 12/04/18 09:17; Admin Dose 400 MG; Start 11/29/18 at 21:00 Multivitamins Therapeutic (Theragran) 1 tab DAILY PO Last administered on 12/04/18at 09:18; Admin Dose 1 TAB; Start 11/30/18 at 09:00 Ondansetron HCl (Zofran Tab) 4 mg Q8H PRN PO NAUSEA AND/OR VOMITING; Start 11/29/18 at 18:00 Senna (Senokot) 1 tab DAILY PRN PO CONSTIPATION; Start 11/29/18 at 18:00 Zolpidem Tartrate (Ambien) 5 mg QHS PRN PO INSOMNIA; Start 11/29/18 at 18:00 Metoprolol Tartrate (Lopressor) 25 mg BID PO Last administered on 12/04/18at 09:17; Admin Dose 25 MG; Start 11/30/18 at 09:00 Levothyroxine Sodium (Synthroid) 100 mcg AC BREAKFAST PO Last administered on 12/04/18at 06:14; Admin Dose 100 MCG; Start 12/01/18 at 07:00 Guaifenesin/ Dextromethorphan (Robitussin Dm Liquid Cup) 5 ml Q6 PRN PO COUGH; Start 12/04/18 at 12:00 ALIVIA VALENCIA Dec 04, 2018 12:40
[2018-12-04 14:30] VITALS: BP 118/55; PULSE 79; RESP 16
[2018-12-04 20:00] VITALS: BP 119/55; PULSE 92; RESP 18
[2018-12-04] MEDS: ATORVASTATIN 40 MG TAB PO SCH (20:25)
[2018-12-05 02:00] VITALS: BP 128/59; PULSE 76; RESP 18
[2018-12-05] MEDS: LEVOTHYROXINE 100 MCG TAB PO SCH (06:26)
[2018-12-05 07:46] VITALS: BP 117/59; PULSE 77; RESP 16
[2018-12-05] MEDS: METOPROLOL 50 MG TAB PO SCH ×2 (08:40→21:27)
[2018-12-05] MEDS: FERROUS SULFATE (EC) 325 MG TAB PO SCH (08:40)
[2018-12-05] MEDS: MAGNESIUM OXIDE 400 MG TAB PO SCH ×2 (08:40→21:27)
[2018-12-05] MEDS: MULTIVITAMINS THERAPEUTIC TAB PO SCH (08:40)
[2018-12-05] MEDS: ASCORBIC ACID 250 MG TAB PO SCH (08:41)
[2018-12-05] MEDS: ASPIRIN 81 MG TAB PO SCH (08:41)
[2018-12-05] MEDS: DOCUSATE SODIUM 100 MG CAP PO SCH ×2 (08:41→21:27)
--- NOTE | 2018-12-05 10:55 | PN ---
Date/Time of Note Date/Time of Note DATE: 12/05/18 TIME: 10:55 Assessment/Plan VTE Prophylaxis Risk score (from [facility]0 risk: 6 SCD applied (from [facility]): Yes SCD contraindicated: other Pharmacological prophylaxis: other Lines/Catheters [facility] Saline Lock Urinary Cath still in place: No Assessment/Plan Assessment/Plan -Anemia. Status post blood transfusion, continue to continue to monitor hemoglobin and hematocrit. Dr. Milian is following in hematology consultation. -GI bleed, status post EGD with notion of gastritis, continue PPI. Dr. Tubbs is following in gastroenterology consultation. -Coronary artery disease and peripheral vascular disease. Continue aspirin. -Hypothyroidism. Continue Synthroid. -Dyslipidemia. Continue Lipitor. -Hypertension. Continue Apresoline and Lopressor. Result Diagram: 12/05/18 0418 12/01/18 0423 Results 24hrs Laboratory Tests Test 12/05/18 04:18 White Blood Count 9.2 Red Blood Count 3.63 L Hemoglobin 10.3 L Hematocrit 32.2 L Mean Corpuscular Volume 88.7 Mean Corpuscular Hemoglobin 28.4 L Mean Corpuscular Hemoglobin Concent 32.0 Red Cell Distribution Width 16.0 H Platelet Count 367 # Mean Platelet Volume 9.9 Immature Granulocytes % 0.400 Neutrophils % 64.2 Lymphocytes % 17.4 Monocytes % 7.9 Eosinophils % 9.1 H Basophils % 1.0 Nucleated Red Blood Cells % 0.0 Immature Granulocytes # 0.040 H Neutrophils # 5.9 Lymphocytes # 1.6 Monocytes # 0.7 Eosinophils # 0.8 H Basophils # 0.1 Nucleated Red Blood Cells # 0.0 Subjective 24 Hr Interval Summary Free Text/Dictation nad afebrile; no GI bleed reported today Hypokalemia- no labs available yet no new issues reported last night Eyes: no complaints Respiratory: no complaints Cardiovascular: no complaints Gastrointestinal: pain Genitourinary: no complaints Musculoskeletal: no complaints Skin: no complaints Exam/Review of Systems Exam Vitals Vital Signs Date Temp Pulse Resp B/P (MAP) Pulse Ox O2 O2 Flow FiO2 Time Delivery Rate 12/05/18 Nasal 2.0 07:59 Cannula 12/05/18 98.0 77 16 117/59 94 07:46 (78) Intake and Output 12/04/18 12/04/18 12/05/18 1515:00 23:00 07:00 IntakeIntake Total 960 ml 600 ml 360 ml BalanceBalance 960 ml 600 ml 360 ml Constitutional: alert, well developed Psych: nl mood/affect Head: atraumatic Eyes: nl lids, nl sclera ENMT: nl external ears & nose Neck: non-tender Respiratory: clear to auscultation (bilaterally) Cardiovascular: nl pulses, other (s1s2) Gastrointestinal: soft, non-tender Musculoskeletal: muscle weakness Extremities: normal pulses Neurological: nl speech, other (alert/reponsive) Lymph: nontender Results Results 24hrs Laboratory Tests Test 12/05/18 04:18 White Blood Count 9.2 Red Blood Count 3.63 L Hemoglobin 10.3 L Hematocrit 32.2 L Mean Corpuscular Volume 88.7 Mean Corpuscular Hemoglobin 28.4 L Mean Corpuscular Hemoglobin Concent 32.0 Red Cell Distribution Width 16.0 H Platelet Count 367 # Mean Platelet Volume 9.9 Immature Granulocytes % 0.400 Neutrophils % 64.2 Lymphocytes % 17.4 Monocytes % 7.9 Eosinophils % 9.1 H Basophils % 1.0 Nucleated Red Blood Cells % 0.0 Immature Granulocytes # 0.040 H Neutrophils # 5.9 Lymphocytes # 1.6 Monocytes # 0.7 Eosinophils # 0.8 H Basophils # 0.1 Nucleated Red Blood Cells # 0.0 Medications Medication Current Medications Acetaminophen (Tylenol Tab) 650 mg Q6H PRN PO MILD PAIN LEVEL 1-3; Start 11/29/18 at 18:00 Ascorbic Acid (Vitamin C) 250 mg DAILY PO Last administered on 12/05/18 08:41; Admin Dose 250 MG; Start 11/30/18 at 09:00 Aspirin (Aspirin) 81 mg DAILY PO Last administered on 12/05/18 08:41; Admin Dose 81 MG; Start 11/30/18 at 09:00 Atorvastatin Calcium (Lipitor) 40 mg QHS PO Last administered on 12/04/18 20:25; Admin Dose 40 MG; Start 11/29/18 at 21:00 Docusate Sodium (Colace) 100 mg BID PO Last administered on 12/05/18 08:41; Admin Dose 100 MG; Start 11/29/18 at 21:00 Ferrous Sulfate (Ferrous Sulfate (Ec)) 325 mg DAILY PO Last administered on 12/05/18 08:40; Admin Dose 325 MG; Start 11/30/18 at 09:00 Acetaminophen/ Hydrocodone Bitart ([place] (5/325)) 1 tab Q4H PRN PO SEVERE PAIN LEVEL 7-10; Start 11/29/18 at 18:00 Magnesium Oxide (Mag-Ox 400) 400 mg BID PO Last administered on 12/05/18 08:40; Admin Dose 400 MG; Start 11/29/18 at 21:00 Multivitamins Therapeutic (Theragran) 1 tab DAILY PO Last administered on 12/05/18 08:40; Admin Dose 1 TAB; Start 11/30/18 at 09:00 Ondansetron HCl (Zofran Tab) 4 mg Q8H PRN PO NAUSEA AND/OR VOMITING; Start 11/29/18 at 18:00 Senna (Senokot) 1 tab DAILY PRN PO CONSTIPATION; Start 11/29/18 at 18:00 Zolpidem Tartrate (Ambien) 5 mg QHS PRN PO INSOMNIA; Start 11/29/18 at 18:00 Metoprolol Tartrate (Lopressor) 25 mg BID PO Last administered on 12/05/18 08:40; Admin Dose 25 MG; Start 11/30/18 at 09:00 Levothyroxine Sodium (Synthroid) 100 mcg AC BREAKFAST PO Last administered on 12/05/18 06:26; Admin Dose 100 MCG; Start 12/01/18 at 07:00 Guaifenesin/ Dextromethorphan (Robitussin Dm Liquid Cup) 5 ml Q6 PRN PO COUGH; Start 12/04/18 at 12:00 DEA PLUNKETT Dec 05, 2018 10:55
[2018-12-05 14:51] VITALS: BP 142/63; PULSE 74; RESP 16
[2018-12-05 19:49] VITALS: BP 104/50; PULSE 80; RESP 18
[2018-12-05] MEDS: ATORVASTATIN 40 MG TAB PO SCH (21:27)
[2018-12-06 01:51] VITALS: BP 128/59; PULSE 69; RESP 18
[2018-12-06] MEDS: LEVOTHYROXINE 100 MCG TAB PO SCH (06:03)
[2018-12-06 07:34] VITALS: BP 130/60; PULSE 65; RESP 14
[2018-12-06] MEDS: METOPROLOL 50 MG TAB PO SCH ×2 (08:33→20:47)
[2018-12-06] MEDS: MAGNESIUM OXIDE 400 MG TAB PO SCH ×2 (08:33→20:46)
[2018-12-06] MEDS: FERROUS SULFATE (EC) 325 MG TAB PO SCH (08:33)
[2018-12-06] MEDS: ASPIRIN 81 MG TAB PO SCH (08:33)
[2018-12-06] MEDS: ASCORBIC ACID 250 MG TAB PO SCH (08:33)
[2018-12-06] MEDS: DOCUSATE SODIUM 100 MG CAP PO SCH ×2 (08:33→20:46)
[2018-12-06] MEDS: MULTIVITAMINS THERAPEUTIC TAB PO SCH (10:00)
[2018-12-06 14:51] VITALS: BP 103/49; PULSE 74; RESP 16
[2018-12-06 19:24] VITALS: BP 119/55; PULSE 78; RESP 16
[2018-12-06] MEDS: ATORVASTATIN 40 MG TAB PO SCH (20:46)
--- NOTE | 2018-12-06 22:58 | PN ---
Date/Time of Note Date/Time of Note DATE: 12/06/18 TIME: 22:58 Assessment/Plan VTE Prophylaxis Risk score (from Ns)>0 risk: 4 SCD applied (from Ns): Yes Pharmacological prophylaxis: other Lines/Catheters IV C[facility]ter Type (from [facility]): Peripheral IV Urinary Cath still in place: No Assessment/Plan Assessment/Plan -Anemia. Status post blood transfusion, continue to continue to monitor hemoglobin and hematocrit. -Dr. Milian is following in hematology consultation. -GI bleed, status post EGD with notion of gastritis, continue PPI. -Dr. Tubbs is following in gastroenterology consultation. - no GI bleed noted at present -Coronary artery disease and peripheral vascular disease. Continue aspirin. -Hypothyroidism. Continue Synthroid. -Dyslipidemia. Continue Lipitor. -Hypertension. Continue Apresoline and Lopressor. Anticipate discharge to Assisted Living , once patient is cleared. Patient seen in collaboration with Dr Jorgensen Result Diagram: 12/05/18 0418 Results 24hrs Laboratory Tests Test 12/06/18 11:29 Lab Scanned Report REFERENCE LAB Subjective 24 Hr Interval Summary Free Text/Dictation Patient is hemodynamically stable nad no new issues reported last night dw staff Eyes: no complaints ENT: no complaints Respiratory: no complaints Cardiovascular: no complaints Gastrointestinal: no complaints Genitourinary: no complaints Musculoskeletal: restricted range of motion Skin: no complaints Neurologic: no complaints Exam/Review of Systems Exam Vitals Vital Signs Date Temp Pulse Resp B/P (MAP) Pulse Ox O2 O2 Flow FiO2 Time Delivery Rate 12/06/18 98.0 78 16 119/55 94 19:24 (76) 12/06/18 2.0 08:20 12/05/18 Nasal 20:00 Cannula Intake and Output 12/05/18 12/05/18 12/06/18 1515:00 23:00 07:00 IntakeIntake Total 760 ml 440 ml 300 ml BalanceBalance 760 ml 440 ml 300 ml Constitutional: alert, well developed Psych: nl mood/affect Head: atraumatic Eyes: nl lids, nl sclera ENMT: nl external ears & nose Neck: non-tender Respiratory: clear to auscultation Cardiovascular: nl pulses, other (s1s2) Gastrointestinal: soft, non-tender Musculoskeletal: muscle weakness Extremities: normal pulses Neurological: nl speech, other (alert/awake) Lymph: nontender Results Results 24hrs Laboratory Tests Test 12/06/18 11:29 Lab Scanned Report REFERENCE LAB Medications Medication Current Medications Acetaminophen (Tylenol Tab) 650 mg Q6H PRN PO MILD PAIN LEVEL 1-3; Start 11/29/18 at 18:00 Ascorbic Acid (Vitamin C) 250 mg DAILY PO Last administered on 12/06/18 08:33; Admin Dose 250 MG; Start 11/30/18 at 09:00 Aspirin (Aspirin) 81 mg DAILY PO Last administered on 12/06/18 08:33; Admin Dose 81 MG; Start 11/30/18 at 09:00 Atorvastatin Calcium (Lipitor) 40 mg QHS PO Last administered on 12/06/18 20:46; Admin Dose 40 MG; Start 11/29/18 at 21:00 Docusate Sodium (Colace) 100 mg BID PO Last administered on 12/06/18 20:46; Admin Dose 100 MG; Start 11/29/18 at 21:00 Ferrous Sulfate (Ferrous Sulfate (Ec)) 325 mg DAILY PO Last administered on 12/06/18 08:33; Admin Dose 325 MG; Start 11/30/18 at 09:00 Acetaminophen/ Hydrocodone Bitart ([place] (5/325)) 1 tab Q4H PRN PO SEVERE PAIN LEVEL 7-10; Start 11/29/18 at 18:00 Magnesium Oxide (Mag-Ox 400) 400 mg BID PO Last administered on 12/06/18 20:46; Admin Dose 400 MG; Start 11/29/18 at 21:00 Multivitamins Therapeutic (Theragran) 1 tab DAILY PO Last administered on 11/12 10:00; Admin Dose 1 TAB; Start 11/30/18 at 09:00 Ondansetron HCl (Zofran Tab) 4 mg Q8H PRN PO NAUSEA AND/OR VOMITING; Start 11/29/18 at 18:00 Senna (Senokot) 1 tab DAILY PRN PO CONSTIPATION; Start 11/29/18 at 18:00 Zolpidem Tartrate (Ambien) 5 mg QHS PRN PO INSOMNIA; Start 11/29/18 at 18:00 Metoprolol Tartrate (Lopressor) 25 mg BID PO Last administered on 12/06/18 20:47; Admin Dose 25 MG; Start 11/30/18 at 09:00 Levothyroxine Sodium (Synthroid) 100 mcg AC BREAKFAST PO Last administered on 12/06/18at 06:03; Admin Dose 100 MCG; Start 12/01/18 at 07:00 Guaifenesin/ Dextromethorphan (Robitussin Dm Liquid Cup) 5 ml Q6 PRN PO COUGH; Start 12/04/18 at 12:00 DEA PLUNKETT Dec 06, 2018 22:58
[2018-12-07 01:30] VITALS: BP 135/62; PULSE 72; RESP 18
[2018-12-07] MEDS: LEVOTHYROXINE 100 MCG TAB PO SCH (06:20)
[2018-12-07 07:58] VITALS: BP 127/60; PULSE 79; RESP 18
[2018-12-07] MEDS: ASCORBIC ACID 250 MG TAB PO SCH (09:23)
[2018-12-07] MEDS: FERROUS SULFATE (EC) 325 MG TAB PO SCH (09:23)
[2018-12-07] MEDS: MULTIVITAMINS THERAPEUTIC TAB PO SCH (09:23)
[2018-12-07] MEDS: MAGNESIUM OXIDE 400 MG TAB PO SCH ×2 (09:23→21:23)
[2018-12-07] MEDS: DOCUSATE SODIUM 100 MG CAP PO SCH ×2 (09:23→21:23)
[2018-12-07] MEDS: ASPIRIN 81 MG TAB PO SCH (09:23)
[2018-12-07] MEDS: METOPROLOL 50 MG TAB PO SCH ×2 (09:24→21:00)
[2018-12-07 14:03] VITALS: BP 111/58; PULSE 74; RESP 18
--- NOTE | 2018-12-07 16:21 | PN ---
DATE: 12/07/2018 SUBJECTIVE: The patient denies any chest pain or shortness of breath. Denies headache. No fever or chills. No reported bleeding from any site. PHYSICAL EXAMINATION: GENERAL: Revealed the patient to be awake, alert. VITAL SIGNS: Temperature 97.7, pulse 79, respirations 18, blood pressure 127/60, O2 sat 96% on 2 lit er nasal cannula. HEENT: No eye discharge or redness. Conjunctivae and lids are normal. Oropharynx is clear. NECK: No mass. CHEST: Fairly clear. CARDIOVASCULAR: S1, S2 normal. No murmur. ABDOMEN: Soft, nontender, nondistended. Bowel sounds plus. EXTREMITIES: No leg edema. No calf tenderness. Pedal pulses are palpable. SKIN: Without acute rash or ulcer. NEUROLOGIC: The patient is awake, alert, fairly oriented with no gross focal deficit. DIAGNOSTIC DATA: She has EGD and was found to have gastritis. LABORATORY DATA: The patient also was evaluated by Dr. Ramos and workup so far has been negative. Vitamin B12, folate and iron panel are within normal limits. LDH is normal. Laboratories done this morning revealed a WBC of 9, hemoglobin 10.7, platelet 413. We will continue to monitor. BMP was do ne this morning which revealed sodium of 138, potassium of 4.4 up from 3.1, BUN 20, creatinine 0.6, g lucose 82, calcium 9. IMPRESSION: 1. Coronary artery disease and peripheral vascular disease. Continue aspirin. Currently asymptomat ic. 2. Hypothyroidism. Synthroid dose has been decreased to 100 mcg from 125 mcg due to slightly elevat ed free T4 and slightly low TSH. We will repeat labs in next few weeks. 3. Hypertension. Blood pressure is well controlled with Lopressor. 4. Dyslipidemia. The patient is tolerating statins well. Liver enzymes are normal. DISPOSITION: The patient will be discharged to assisted living. Case management has been working on it with the family. Dictated By: EULALIO PINON/GERARD Conf#: [id number] DID#: [id number]
[2018-12-07 19:25] VITALS: BP 116/58; PULSE 83; RESP 18
[2018-12-07] MEDS: ATORVASTATIN 40 MG TAB PO SCH (21:23)
[2018-12-08] MEDS: GUAIFENESIN/DM 5ML CUP PO PRN (01:33)
[2018-12-08 01:41] VITALS: BP 116/56; PULSE 85; RESP 18
[2018-12-08] MEDS: LEVOTHYROXINE 100 MCG TAB PO SCH (06:15)
[2018-12-08 07:36] VITALS: BP 123/56; PULSE 85; RESP 18
[2018-12-08] MEDS: ASPIRIN 81 MG TAB PO SCH (09:50)
[2018-12-08] MEDS: METOPROLOL 50 MG TAB PO SCH ×2 (09:50→21:12)
[2018-12-08] MEDS: MULTIVITAMINS THERAPEUTIC TAB PO SCH (09:50)
[2018-12-08] MEDS: MAGNESIUM OXIDE 400 MG TAB PO SCH ×2 (09:50→21:12)
[2018-12-08] MEDS: DOCUSATE SODIUM 100 MG CAP PO SCH ×2 (09:50→21:11)
[2018-12-08] MEDS: FERROUS SULFATE (EC) 325 MG TAB PO SCH (09:50)
--- NOTE | 2018-12-08 09:54 | CONS ---
Assessment/Plan Assessment/Plan Hospital Course (Demo Recall) #Anemia -most likely secondary to mild MDS as well as potential diverticular bleed -will erythropoietin level to see if patient would benefit from Procrit, but I Would only start Procrit if her Hg were consistently less that 10 -EGD demonstrates gastritis and colonoscopy demonstrated diverticulosis -no evidence of vitamin b12 or folate deficiency -Thyroid studies reviewed -sPEP is not consistent with multiple myeloma -normal LDH and haptoglobin make hemolysis unlikely #Hypothyroidism -continue Synthroid per primary #HTN -continue BP meds Thank you for the opportunity to participate in this patients care A total of 40 minutes of face to face time was spent speaking with the patient, of which greater than 50% was spent in counseling and coordination of care and the detailed question and answer session. Consultation Date/Type/Reason Admit Date/Time Nov 29, 2018 at 10:29 Initial Consult Date 11/30/18 Type of Consult hematology Reason for Consultation anemia Requesting Provider: EULALIO FITZGERALD MD Date/Time of Note DATE: 12/08/18 TIME: 09:52 24 HR Interval Summary Free Text/Dictation no acute overnight events Exam/Review of Systems Exam Vitals Vital Signs Date Temp Pulse Resp B/P (MAP) Pulse Ox O2 O2 Flow FiO2 Time Delivery Rate 12/08/18 98.2 85 18 123/56 91 07:36 (78) 12/07/18 Nasal 2.0 20:00 Cannula Intake and Output 12/07/18 12/07/18 12/08/18 1515:00 23:00 07:00 IntakeIntake Total 960 ml 240 ml BalanceBalance 960 ml 240 ml Constitutional: frail Psych: anxiety, confusion, depression Head: normocephalic Eyes: nl conjunctiva ENMT: nl external ears & nose Neck: supple Respiratory: clear to auscultation Cardiovascular: regular rate and rhythm Gastrointestinal: soft Musculoskeletal: nl extremities to inspection Results Result Diagram: 12/07/1842412/07/18424 Medications Medication Current Medications Acetaminophen (Tylenol Tab) 650 mg Q6H PRN PO MILD PAIN LEVEL 1-3; Start 11/29/18 at 18:00 Aspirin (Aspirin) 81 mg DAILY PO Last administered on 12/08/18at 09:50; Admin Do se 81 MG; Start 11/30/18 at 09:00 Atorvastatin Calcium (Lipitor) 40 mg QHS PO Last administered on 12/07/18 21:23; Admin Dose 40 MG; Start 11/29/18 at 21:00 Docusate Sodium (Colace) 100 mg BID PO Last administered on 12/08/18 09:50; Admin Dose 100 MG; Start 11/29/18 at 21:00 Ferrous Sulfate (Ferrous Sulfate (Ec)) 325 mg DAILY PO Last administered on 12/08/18 09:50; Admin Dose 325 MG; Start 11/30/18 at 09:00 Magnesium Oxide (Mag-Ox 400) 400 mg BID PO Last administered on 12/08/18 09:50; Admin Dose 400 MG; Start 11/29/18 at 21:00 Multivitamins Therapeutic (Theragran) 1 tab DAILY PO Last administered on 12/08/18 09:50; Admin Dose 1 TAB; Start 11/30/18 at 09:00 Ondansetron HCl (Zofran Tab) 4 mg Q8H PRN PO NAUSEA AND/OR VOMITING; Start 11/29/18 at 18:00 Senna (Senokot) 1 tab DAILY PRN PO CONSTIPATION; Start 11/29/18 at 18:00 Zolpidem Tartrate (Ambien) 5 mg QHS PRN PO INSOMNIA Last administered on 12/06/18 23:06; Admin Dose 5 MG; Start 11/29/18 at 18:00 Metoprolol Tartrate (Lopressor) 25 mg BID PO Last administered on 12/08/18 09:50; Admin Dose 25 MG; Start 11/30/18 at 09:00 Levothyroxine Sodium (Synthroid) 100 mcg AC BREAKFAST PO Last administered on 12/08/18 06:15; Admin Dose 100 MCG; Start 12/01/18 at 07:00 Guaifenesin/ Dextromethorphan (Robitussin Dm Liquid Cup) 5 ml Q6 PRN PO COUGH Last administered on 12/08/18 01:33; Admin Dose 5 ML; Start 12/04/18 at 12:00 LIZZ DALEY M.D. Dec 08, 2018 09:54
[2018-12-08 13:16] VITALS: BP 108/51; PULSE 66; RESP 18
[2018-12-08] MEDS ORDERED: ZOLP5TAB7 PO (13:17)
[2018-12-08] MEDS ORDERED: ASCO250T96 PO (13:17)
[2018-12-08] MEDS ORDERED: AMIN30LI PO (13:17)
[2018-12-08] MEDS ORDERED: ATOR40TA68 PO (13:17)
[2018-12-08] MEDS ORDERED: MULTI PO (13:17)
[2018-12-08] MEDS ORDERED: METO-429 PO (13:17)
[2018-12-08] MEDS ORDERED: LEVO100T8 PO (13:17)
[2018-12-08] MEDS ORDERED: CLOP75TA27 PO (13:17)
[2018-12-08] MEDS ORDERED: MELA3TAB17 PO (13:17)
[2018-12-08] MEDS ORDERED: ASPI-903 PO (13:17)
[2018-12-08] MEDS ORDERED: GUAI120S26 PO (13:17)
[2018-12-08] MEDS ORDERED: SENN-120 PO (13:17)
[2018-12-08] MEDS ORDERED: FER325 PO (13:17)
--- NOTE | 2018-12-08 13:38 | DS ---
Date/Time of Note Date/Time of Note DATE: 12/08/18 TIME: 13:38 Discharge Summary Admission/Discharge Info Admit Date/Time Nov 29, 2018 at 10:29 Discharge Date/Time Patient Condition: Stable Home Meds Active Scripts Levothyroxine Sodium* (Levothyroxine Sodium*) 100 Mcg Tablet, 100 MCG PO AC BREAKFAST for 30 Days, TAB Prov:DEA PLUNKETT 12/08/18 [id number] Hb* (Guaifenesin* DM Syrup) 120 Ml Syrup, 5 ML PO Q6 PRN for COUGH for 30 Days Prov:DEA PLUNKETT 12/08/18 Metoprolol Tartrate* (Lopressor*) 50 Mg Tab, 25 MG PO BID for 30 Days, TAB Prov:DEA PLUNKETT 12/08/18 Zolpidem Tartrate* (Zolpidem Tartrate*) 5 Mg Tablet, 5 MG PO QHS PRN for INSOMNIA, #30 TAB Prov:DEA PLUNKETT 12/08/18 Sennosides* (Senna Lax*) 8.6 Mg Tablet, 1 TAB PO DAILY PRN for CONSTIPATION for 30 Days, TAB Prov:DEA PLUNKETT 12/08/18 Amino Acids/Protein Hydrolys (PRO-STAT LIQUID) 30 Ml Liquid.pkt, 30 ML PO BID for 30 Days Prov:DEA PLUNKETT 12/08/18 Multivitamins* (Theragran*) 1 Tab Tab, 1 TAB PO DAILY for 30 Days, TAB Prov:DEA PLUNKETT 12/08/18 Melatonin (Melatonin) 3 Mg Tablet.sa, 3 MG PO HS for 30 Days, TAB.SA Prov:DEA PLUNKETT 12/08/18 Ferrous Sulfate* (Ferrous Sulfate*) 325 Mg Tabec, 325 MG PO DAILY for 30 Days, TAB Prov:DEA PLUNKETT 12/08/18 Atorvastatin* (Atorvastatin*) 40 Mg Tablet, 40 MG PO QHS for 30 Days, #30 TAB Prov:DEA PLUNKETT 12/08/18 Aspirin* (Aspirin* Chew) 81 Mg Tab.chew, 81 MG PO DAILY for 30 Days, TAB.CHEW Prov:DEA PLUNKETT 12/08/18 Ascorbic Acid (Vitamin C) 250 Mg Tab, 250 MG PO DAILY for 30 Days, TAB Prov:DEA PLUNKETT 12/08/18 Reported Medications Guaifenesin-Dextromethorphan* (Robitussin* DM) 100MG/10MG/5ML Syrup, 10 ML PO Q4H PRN for COUGH, ML 11/29/18 Ondansetron Hcl* (Ondansetron Hcl*) 4 Mg Tablet, 4 MG PO Q8 PRN for NAUSEA AND/OR VOMITING, TAB 11/29/18 Metoprolol Tartrate* (Lopressor*) 50 Mg Tab, 50 MG PO BID, #60 TAB HOLD FOR SBP<110 OR HR<60 11/29/18 Magnesium Oxide* (Magnesium Oxide*) 400 Mg Tablet, 400 MG PO BID, TAB 11/29/18 Levothyroxine Sodium* (Levothyroxine Sodium*) 125 Mcg Tablet, 125 MCG PO BEFORE BREAKFAST, #30 TAB 11/29/18 Hydrocodone/Acetaminophen ([place] 5-325 Tablet) 1 Each Tablet, 1 EACH PO Q4 PRN for SEVERE PAIN LEVEL 7-10, TAB 11/29/18 Hydralazine Hcl* (Hydralazine Hcl*) 25 Mg Tab, 25 MG PO BID, #60 TAB HOLD FOR SBP<110 11/29/18 Guaifenesin/Dextromethorphan (Tammie-Tussin Dm Syrup) 473 Ml Syrup, 10 ML PO Q4 PRN for COUGH 11/29/18 Docusate Sodium* (Colace*) 100 Mg Capsule, 100 MG PO BID, #60 CAP 11/29/18 Benzocaine/Menthol* (Cepacol* Sore Throat Lozenges) 1 Each Lozenge, 1 EACH MM q2h PRN for SORE THROAT, LOZENGE 11/29/18 Acetaminophen* (Acetaminophen*) 650 Mg Tablet, 650 MG PO Q6H PRN for MILD PAIN LEVEL 1-3, #30 TAB 11/29/18 Discontinued Scripts Clopidogrel Bisulfate (Clopidogrel) 75 Mg Tablet, 75 MG PO DAILY, #30 TAB Prov:DEA PLUNKETT 12/08/18 Follow-up Plan FU with Primary x 1 week Call 911 or go to the nearest hospital if symptoms get worse Dw Dr Crouch/staff Primary Care Provider MD KIARRA Suarez RANBIR Dec 08, 2018 13:38
--- NOTE | 2018-12-08 13:38 | PDOCDIS ---
Discharge Instructions CONDITION [id number] Patient Condition: [id number] Stable HOME CARE INSTRUCTIONS: [id number] Diet Instructions: [id number] ACTIVITY: [id number] Activity Restrictions: [id number] Slowly Increase Activity Rest between Activity Avoid heavy lifting Do not Drive FOLLOW UP/APPOINTMENTS Follow-up Plan FU with Primary x 1 week Call 911 or go to the nearest hospital if symptoms get worse Dw Dr Crouch/staff DEA PLUNKETT Dec 08, 2018 13:37
[2018-12-08 19:30] VITALS: BP 130/60; PULSE 81; RESP 1; RESP 16
[2018-12-08 21:10] VITALS: BP 114/57; PULSE 74
[2018-12-08] MEDS: ATORVASTATIN 40 MG TAB PO SCH (21:12)
--- NOTE | 2018-12-08 21:53 | PN ---
Date/Time of Note Date/Time of Note DATE: 12/08/18 TIME: 21:53 Assessment/Plan VTE Prophylaxis Risk score (from Nsg)>0 risk: 4 SCD applied (from Nsg): Yes Lines/Catheters IV Catheter Type (from Nrsg): Saline Lock Urinary Cath still in place: No Assessment/Plan Assessment/Plan -Anemia. Status post blood transfusion, continue to continue to monitor hemoglobin and hematocrit. -Dr. Milian is following in hematology consultation. -GI bleed, status post EGD with notion of gastritis, continue PPI. -Dr. Tubbs is following in gastroenterology consultation. - no GI bleed noted at present -Coronary artery disease and peripheral vascular disease. Continue aspirin. -Hypothyroidism. Continue Synthroid. -Dyslipidemia. Continue Lipitor. -Hypertension. Continue Apresoline and Lopressor. Anticipate discharge to Assisted Living , once patient is cleared. Patient seen in collaboration with Dr Jorgensen Result Diagram: 12/07/1842412/07/18424 Exam/Review of Systems Exam Vitals Vital Signs Date Temp Pulse Resp B/P (MAP) Pulse Ox O2 O2 Flow FiO2 Time Delivery Rate 12/08/18 74 114/57 21:10 (76) 12/08/18 Nasal 2.0 20:00 Cannula 12/08/18 98.8 16 93 19:30 Intake and Output 12/07/18 12/07/18 12/08/18 1515:00 23:00 07:00 IntakeIntake Total 960 ml 240 ml BalanceBalance 960 ml 240 ml Medications Medication Current Medications Acetaminophen (Tylenol Tab) 650 mg Q6H PRN PO MILD PAIN LEVEL 1-3; Start 11/29/18 at 18:00 Aspirin (Aspirin) 81 mg DAILY PO Last administered on 12/08/18at 09:50; Admin Dose 81 MG; Start 11/30/18 at 09:00 Atorvastatin Calcium (Lipitor) 40 mg QHS PO Last administered on 12/08/18at 21:12; Admin Dose 40 MG; Start 11/29/18 at 21:00 Docusate Sodium (Colace) 100 mg BID PO Last administered on 12/08/18at 21:11; Admin Dose 100 MG; Start 11/29/18 at 21:00 Ferrous Sulfate (Ferrous Sulfate (Ec)) 325 mg DAILY PO Last administered on 12/08/18at 09:50; Admin Dose 325 MG; Start 11/30/18 at 09:00 Magnesium Oxide (Mag-Ox 400) 400 mg BID PO Last administered on 12/08/18 21:12; Admin Dose 400 MG; Start 11/29/18 at 21:00 Multivitamins Therapeutic (Theragran) 1 tab DAILY PO Last administered on 09:50; Admin Dose 1 TAB; Start 11/30/18 at 09:00 Ondansetron HCl (Zofran Tab) 4 mg Q8H PRN PO NAUSEA AND/OR VOMITING; Start 11/29/18 at 18:00 Senna (Senokot) 1 tab DAILY PRN PO CONSTIPATION; Start 11/29/18 at 18:00 Zolpidem Tartrate (Ambien) 5 mg QHS PRN PO INSOMNIA Last administered on 12/06 23:06; Admin Dose 5 MG; Start 11/29/18 at 18:00 Metoprolol Tartrate (Lopressor) 25 mg BID PO Last administered on 12/08/18 21:12; Admin Dose 25 MG; Start 11/30/18 at 09:00 Levothyroxine Sodium (Synthroid) 100 mcg AC BREAKFAST PO Last administered on 12/08/18 06:15; Admin Dose 100 MCG; Start 12/01/18 at 07:00 Guaifenesin/ Dextromethorphan (Robitussin Dm Liquid Cup) 5 ml Q6 PRN PO COUGH Last administered on 12/08/18 01:33; Admin Dose 5 ML; Start 12/04/18 at 12:00 DEA PLUNKETT Dec 08, 2018 21:53
[2018-12-09] MEDS: GUAIFENESIN/DM 5ML CUP PO PRN (00:43)
[2018-12-09 01:04] VITALS: BP 117/56; PULSE 74
[2018-12-09] MEDS: LEVOTHYROXINE 100 MCG TAB PO SCH (06:21)
[2018-12-09 07:42] VITALS: BP 116/53; PULSE 65; RESP 18
[2018-12-09] MEDS: FERROUS SULFATE (EC) 325 MG TAB PO SCH (09:59)
[2018-12-09] MEDS: MAGNESIUM OXIDE 400 MG TAB PO SCH ×2 (09:59→21:12)
[2018-12-09] MEDS: METOPROLOL 50 MG TAB PO SCH ×2 (09:59→21:00)
[2018-12-09] MEDS: ASPIRIN 81 MG TAB PO SCH (09:59)
[2018-12-09] MEDS: MULTIVITAMINS THERAPEUTIC TAB PO SCH (09:59)
[2018-12-09] MEDS: DOCUSATE SODIUM 100 MG CAP PO SCH ×2 (10:01→21:12)
--- NOTE | 2018-12-09 10:41 | CONS ---
Assessment/Plan Assessment/Plan Hospital Course (Demo Recall) #Anemia -most likely secondary to mild MDS as well as potential diverticular bleed -will erythropoietin level to see if patient would benefit from Procrit, but I Would only start Procrit if her Hg were consistently less that 10 -EGD demonstrates gastritis and colonoscopy demonstrated diverticulosis -no evidence of vitamin b12 or folate deficiency -Thyroid studies reviewed -sPEP is not consistent with multiple myeloma -normal LDH and haptoglobin make hemolysis unlikely #Hypothyroidism -continue Synthroid per primary #HTN -continue BP meds Thank you for the opportunity to participate in this patients care A total of 40 minutes of face to face time was spent speaking with the patient, of which greater than 50% was spent in counseling and coordination of care and the detailed question and answer session. Consultation Date/Type/Reason Admit Date/Time Nov 29, 2018 at 10:29 Initial Consult Date 11/30/18 Type of Consult hematology Reason for Consultation anemia Requesting Provider: EULALIO FITZGERALD MD Date/Time of Note DATE: 12/09/18 TIME: 10:39 24 HR Interval Summary Free Text/Dictation no acute overnight events. Exam/Review of Systems Exam Vitals Vital Signs Date Temp Pulse Resp B/P (MAP) Pulse Ox O2 O2 Flow FiO2 Time Delivery Rate 12/09/18 98.3 65 18 116/53 94 07:42 (74) 12/08/18 Nasal 2.0 20:00 Cannula Intake and Output 12/08/18 12/08/18 12/09/18 1515:00 23:00 07:00 IntakeIntake Total 360 ml 600 ml BalanceBalance 360 ml 600 ml Psych: no complaints Head: normocephalic Eyes: nl conjunctiva ENMT: nl external ears & nose Neck: supple, non-tender Respiratory: clear to auscultation Cardiovascular: regular rate and rhythm Gastrointestinal: soft Musculoskeletal: nl extremities to inspection Extremities: normal pulses Results Result Diagram: 12/07/1842412/07/18424 Results 24hrs Laboratory Tests Test 12/09/18 06:31 Lab Scanned Report REFERENCE LAB Medications Medication Current Medications Acetaminophen (Tylenol Tab) 650 mg Q6H PRN PO MILD PAIN LEVEL 1-3; Start 11/29/18 at 18:00 Aspirin (Aspirin) 81 mg DAILY PO Last administered on 12/09/18at 09:59; Admin Dose 81 MG; Start 11/30/18 at 09:00 Atorvastatin Calcium (Lipitor) 40 mg QHS PO Last administered on 12/08/18 21:12; Admin Dose 40 MG; Start 11/29/18 at 21:00 Docusate Sodium (Colace) 100 mg BID PO Last administered on 12/08/18 21:11; Admin Dose 100 MG; Start 11/29/18 at 21:00 Ferrous Sulfate (Ferrous Sulfate (Ec)) 325 mg DAILY PO Last administered on 12/09/18 09:59; Admin Dose 325 MG; Start 11/30/18 at 09:00 Magnesium Oxide (Mag-Ox 400) 400 mg BID PO Last administered on 12/09/18 09:59; Admin Dose 400 MG; Start 11/29/18 at 21:00 Multivitamins Therapeutic (Theragran) 1 tab DAILY PO Last administered on 12/09/18 09:59; Admin Dose 1 TAB; Start 11/30/18 at 09:00 Ondansetron HCl (Zofran Tab) 4 mg Q8H PRN PO NAUSEA AND/OR VOMITING; Start 11/29/18 at 18:00 Senna (Senokot) 1 tab DAILY PRN PO CONSTIPATION; Start 11/29/18 at 18:00 Zolpidem Tartrate (Ambien) 5 mg QHS PRN PO INSOMNIA Last administered on 12/06/18 23:06; Admin Dose 5 MG; Start 11/29/18 at 18:00 Metoprolol Tartrate (Lopressor) 25 mg BID PO Last administered on 12/09/18 09:59; Admin Dose 25 MG; Start 11/30/18 at 09:00 Levothyroxine Sodium (Synthroid) 100 mcg AC BREAKFAST PO Last administered on 12/09/18 06:21; Admin Dose 100 MCG; Start 12/01/18 at 07:00 Guaifenesin/ Dextromethorphan (Robitussin Dm Liquid Cup) 5 ml Q6 PRN PO COUGH Last administered on 12/09/18 00:43; Admin Dose 5 ML; Start 12/04/18 at 12:00 LIZZ DALEY M.D. Dec 09, 2018 10:41
--- NOTE | 2018-12-09 13:54 | RADRPT ---
Vent Rate: 75 bpm RR Interval: 0 msec IN Interval: 220 msec QRS Duration: 90 msec QT Interval: 396 msec QTC Interval: 442 msec P-R-T [place]: 53 - 45 - 26 degrees Sinus rhythm with 1st degree AV block Otherwise normal ECG Electronically Signed By: Jorden Hardin
[2018-12-09 14:31] VITALS: BP 95/46; PULSE 65; RESP 18
[2018-12-09 20:00] VITALS: BP 99/48; PULSE 75; RESP 15
[2018-12-09] MEDS: ATORVASTATIN 40 MG TAB PO SCH (21:12)
--- NOTE | 2018-12-09 23:17 | PN ---
Date/Time of Note Date/Time of Note DATE: 12/09/18 TIME: 23:16 Assessment/Plan VTE Prophylaxis Risk score (from Nsg)>0 risk: 4 SCD applied (from Nsg): Yes Lines/Catheters IV Catheter Type (from Nrsg): Peripheral IV Urinary Cath still in place: No Assessment/Plan Assessment/Plan -Anemia. Status post blood transfusion, continue to continue to monitor hemoglobin and hematocrit. -Dr. Milian is following in hematology consultation. -GI bleed, status post EGD with notion of gastritis, continue PPI. -Dr. Tubbs is following in gastroenterology consultation. - no GI bleed noted at present -Coronary artery disease and peripheral vascular disease. Continue aspirin. -Hypothyroidism. Continue Synthroid. -Dyslipidemia. Continue Lipitor. -Hypertension. Continue Apresoline and Lopressor. Anticipate discharge to Assisted Living , once patient is cleared. Patient seen in collaboration with Dr Jorgensen Result Diagram: 12/07/1842412/07/18 0425 Results 24hrs Laboratory Tests Test 12/09/18 06:31 Lab Scanned Report REFERENCE LAB Exam/Review of Systems Exam Vitals Vital Signs Date Temp Pulse Resp B/P (MAP) Pulse Ox O2 O2 Flow FiO2 Time Delivery Rate 12/09/18 98.4 75 15 99/48 (65) 91 20:00 12/09/18 Nasal 2.0 08:20 Cannula Intake and Output 12/08/18 12/08/18 12/09/18 1515:00 23:00 07:00 IntakeIntake Total 360 ml 600 ml BalanceBalance 360 ml 600 ml Results Results 24hrs Laboratory Tests Test 12/09/18 06:31 Lab Scanned Report REFERENCE LAB Medications Medication Current Medications Acetaminophen (Tylenol Tab) 650 mg Q6H PRN PO MILD PAIN LEVEL 1-3; Start 11/29/18 at 18:00 Aspirin (Aspirin) 81 mg DAILY PO Last administered on 12/09/18at 09:59; Admin Dose 81 MG; Start 11/30/18 at 09:00 Atorvastatin Calcium (Lipitor) 40 mg QHS PO Last administered on 12/09/18at 21:12; Admin Dose 40 MG; Start 11/29/18 at 21:00 Docusate Sodium (Colace) 100 mg BID PO Last administered on 12/09/18at 21:12; Admin Dose 100 MG; Start 11/29/18 at 21:00 Ferrous Sulfate (Ferrous Sulfate (Ec)) 325 mg DAILY PO Last administered on 12/09/18 09:59; Admin Dose 325 MG; Start 11/30/18 at 09:00 Magnesium Oxide (Mag-Ox 400) 400 mg BID PO Last administered on 12/09/18 21:12; Admin Dose 400 MG; Start 11/29/18 at 21:00 Multivitamins Therapeutic (Theragran) 1 tab DAILY PO Last administered on 12/09/18 09:59; Admin Dose 1 TAB; Start 11/30/18 at 09:00 Ondansetron HCl (Zofran Tab) 4 mg Q8H PRN PO NAUSEA AND/OR VOMITING; Start 11/29/18 at 18:00 Senna (Senokot) 1 tab DAILY PRN PO CONSTIPATION; Start 11/29/18 at 18:00 Zolpidem Tartrate (Ambien) 5 mg QHS PRN PO INSOMNIA Last administered on 12/06/18 23:06; Admin Dose 5 MG; Start 11/29/18 at 18:00 Metoprolol Tartrate (Lopressor) 25 mg BID PO Last administered on 12/09/18 09:59; Admin Dose 25 MG; Start 11/30/18 at 09:00 Levothyroxine Sodium (Synthroid) 100 mcg AC BREAKFAST PO Last administered on 12/09/18 06:21; Admin Dose 100 MCG; Start 12/01/18 at 07:00 Guaifenesin/ Dextromethorphan (Robitussin Dm Liquid Cup) 5 ml Q6 PRN PO COUGH Last administered on 12/09/18 00:43; Admin Dose 5 ML; Start 12/04/18 at 12:00 DEA PLUNKETT Dec 09, 2018 23:17
[2018-12-10 02:37] VITALS: BP 121/56; PULSE 79; RESP 15
[2018-12-10] MEDS: LEVOTHYROXINE 100 MCG TAB PO SCH (05:57)
[2018-12-10 07:27] VITALS: BP 109/56; PULSE 80; RESP 20
[2018-12-10] MEDS: METOPROLOL 50 MG TAB PO SCH ×2 (09:00→20:29)
[2018-12-10] MEDS: FERROUS SULFATE (EC) 325 MG TAB PO SCH (10:02)
[2018-12-10] MEDS: ASPIRIN 81 MG TAB PO SCH (10:02)
[2018-12-10] MEDS: MULTIVITAMINS THERAPEUTIC TAB PO SCH (10:02)
[2018-12-10] MEDS: DOCUSATE SODIUM 100 MG CAP PO SCH ×2 (10:05→20:28)
[2018-12-10] MEDS: MAGNESIUM OXIDE 400 MG TAB PO SCH ×2 (10:05→20:28)
[2018-12-10 14:31] VITALS: BP 118/61; PULSE 77; RESP 18
--- NOTE | 2018-12-10 16:14 | PN ---
Date/Time of Note Date/Time of Note DATE: 12/10/18 TIME: 16:13 Assessment/Plan VTE Prophylaxis Risk score (from Nsg)>0 risk: 6 SCD applied (from Nsg): Yes Lines/Catheters IV Catheter Type (from Nrsg): Peripheral IV Urinary Cath still in place: No Assessment/Plan Assessment/Plan -Anemia. Status post blood transfusion, continue to continue to monitor hemoglobin and hematocrit. -Dr. Milian is following in hematology consultation. -GI bleed, status post EGD with notion of gastritis, continue PPI. -Dr. Tubbs is following in gastroenterology consultation. - no GI bleed noted at present -Coronary artery disease and peripheral vascular disease. Continue aspirin. -Hypothyroidism. Continue Synthroid. -Dyslipidemia. Continue Lipitor. -Hypertension. Continue Apresoline and Lopressor. Anticipate discharge to Assisted Living , once patient is cleared. Patient seen in collaboration with Dr Jorgensen Result Diagram: 12/07/1842412/07/18424 Exam/Review of Systems Exam Vitals Vital Signs Date Temp Pulse Resp B/P (MAP) Pulse Ox O2 O2 Flow FiO2 Time Delivery Rate 12/10/18 98.2 77 18 118/61 95 14:31 (80) 12/09/18 Nasal 2.0 08:20 Cannula Intake and Output 12/09/18 12/09/18 12/10/18 1515:00 23:00 07:00 IntakeIntake Total 760 ml 360 ml OutputOutput Total 1 ml BalanceBalance 759 ml 360 ml Medications Medication Current Medications Acetaminophen (Tylenol Tab) 650 mg Q6H PRN PO MILD PAIN LEVEL 1-3; Start 11/29/18 at 18:00 Aspirin (Aspirin) 81 mg DAILY PO Last administered on 12/10/18at 10:02; Admin Dose 81 MG; Start 11/30/18 at 09:00 Atorvastatin Calcium (Lipitor) 40 mg QHS PO Last administered on 12/09/18at 21:12; Admin Dose 40 MG; Start 11/29/18 at 21:00 Docusate Sodium (Colace) 100 mg BID PO Last administered on 12/10/18 10:05; Admin Dose 100 MG; Start 11/29/18 at 21:00 Ferrous Sulfate (Ferrous Sulfate (Ec)) 325 mg DAILY PO Last administered on 3/2/19at 10:02; Admin Dose 325 MG; Start 11/30/18 at 09:00 Magnesium Oxide (Mag-Ox 400) 400 mg BID PO Last administered on 12/10/18 10:05; Admin Dose 400 MG; Start 11/29/18 at 21:00 Multivitamins Therapeutic (Theragran) 1 tab DAILY PO Last administered on 12/10/18 10:02; Admin Dose 1 TAB; Start 11/30/18 at 09:00 Ondansetron HCl (Zofran Tab) 4 mg Q8H PRN PO NAUSEA AND/OR VOMITING; Start 11/29/18 at 18:00 Senna (Senokot) 1 tab DAILY PRN PO CONSTIPATION; Start 11/29/18 at 18:00 Zolpidem Tartrate (Ambien) 5 mg QHS PRN PO INSOMNIA Last administered on 12/06/18at 23:06; Admin Dose 5 MG; Start 11/29/18 at 18:00 Metoprolol Tartrate (Lopressor) 25 mg BID PO Last administered on 12/09/18at 09:59; Admin Dose 25 MG; Start 11/30/18 at 09:00 Levothyroxine Sodium (Synthroid) 100 mcg AC BREAKFAST PO Last administered on 12/10/18 05:57; Admin Dose 100 MCG; Start 12/01/18 at 07:00 Guaifenesin/ Dextromethorphan (Robitussin Dm Liquid Cup) 5 ml Q6 PRN PO COUGH Last administered on 12/09/18 00:43; Admin Dose 5 ML; Start 12/04/18 at 12:00 DEA PLUNKETT Dec 10, 2018 16:13
[2018-12-10 19:53] VITALS: BP 116/57; PULSE 76; RESP 18
[2018-12-10] MEDS: ATORVASTATIN 40 MG TAB PO SCH (20:28)
[2018-12-11 02:10] VITALS: BP 112/53; PULSE 81; RESP 16
[2018-12-11] MEDS: LEVOTHYROXINE 100 MCG TAB PO SCH (05:56)
[2018-12-11 07:33] VITALS: BP 104/53; PULSE 70; RESP 20
[2018-12-11] MEDS: ASPIRIN 81 MG TAB PO SCH (08:42)
[2018-12-11] MEDS: FERROUS SULFATE (EC) 325 MG TAB PO SCH (08:42)
[2018-12-11] MEDS: MAGNESIUM OXIDE 400 MG TAB PO SCH ×2 (08:42→20:20)
[2018-12-11] MEDS: MULTIVITAMINS THERAPEUTIC TAB PO SCH (08:42)
[2018-12-11] MEDS: DOCUSATE SODIUM 100 MG CAP PO SCH ×2 (08:42→20:20)
[2018-12-11] MEDS: METOPROLOL 50 MG TAB PO SCH ×2 (08:43→20:21)
[2018-12-11 14:21] VITALS: BP 102/51; PULSE 77; RESP 20
[2018-12-11 19:26] VITALS: BP 111/55; PULSE 83; RESP 18
[2018-12-11] MEDS: ATORVASTATIN 40 MG TAB PO SCH (20:20)
--- NOTE | 2018-12-12 01:50 | PN ---
DATE: 12/11/2018 SUBJECTIVE: Follow up on coronary artery disease, anemia, hypothyroidism, hypertension and dyslipide aniceto. The patient is breathing comfortably at rest. Denies any chest pain or shortness of breath. N o reported fever or chills. No reported abdominal pain. PHYSICAL EXAMINATION: GENERAL: Revealed the patient to be awake, alert. VITAL SIGNS: Temperature 98.5, pulse 83, respiration 18, blood pressure 111/55, O2 saturation 94%. HEENT: No eye discharge or redness. Conjunctivae and lids are normal. Oropharynx is clear. NECK: No mass. CHEST: Fairly clear. CARDIOVASCULAR: S1, S2 normal. No murmur. ABDOMEN: Soft, nondistended and nontender. Bowel sounds present. EXTREMITIES: No leg edema. NEUROLOGIC: The patient is awake, alert, fairly oriented with no gross focal deficit. IMPRESSION: 1. Coronary artery disease and peripheral vascular disease. Continue aspirin. The patient has no c hest pain or resting leg pain. 2. Hypothyroidism. Continue Synthroid. Dose was recently adjusted due to slightly low TSH and elev ated free T4. 3. Hypertension. Blood pressure is well controlled with metoprolol. DISPOSITION: The patient is stable for discharge, but is pending placement in a board and care. I [facility] [place]. Hospital bed has not been yet delivered. Dictated By: EULALIO PINON/GERARD Conf#: [id number] DID#: [id number]
[2018-12-12 02:00] VITALS: BP 109/52; PULSE 68; RESP 18
[2018-12-12] MEDS: LEVOTHYROXINE 100 MCG TAB PO SCH (06:24)
[2018-12-12 07:33] VITALS: BP 116/57; PULSE 84; RESP 18
[2018-12-12] MEDS: MULTIVITAMINS THERAPEUTIC TAB PO SCH (08:40)
[2018-12-12] MEDS: ASPIRIN 81 MG TAB PO SCH (08:40)
[2018-12-12] MEDS: FERROUS SULFATE (EC) 325 MG TAB PO SCH (08:40)
[2018-12-12] MEDS: MAGNESIUM OXIDE 400 MG TAB PO SCH ×2 (08:40→20:52)
[2018-12-12] MEDS: METOPROLOL 50 MG TAB PO SCH ×2 (08:41→20:51)
[2018-12-12] MEDS: DOCUSATE SODIUM 100 MG CAP PO SCH ×2 (08:44→20:51)
--- NOTE | 2018-12-12 10:35 | CONS ---
Assessment/Plan Assessment/Plan Hospital Course (Demo Recall) #Anemia -most likely secondary to mild MDS as well as potential diverticular bleed -will erythropoietin level to see if patient would benefit from Procrit, but I Would only start Procrit if her Hg were consistently less that 10 -EGD demonstrates gastritis and colonoscopy demonstrated diverticulosis -no evidence of vitamin b12 or folate deficiency -Thyroid studies reviewed -sPEP is not consistent with multiple myeloma -normal LDH and haptoglobin make hemolysis unlikely #Hypothyroidism -continue Synthroid per primary #HTN -continue BP meds Thank you for the opportunity to participate in this patients care A total of 40 minutes of face to face time was spent speaking with the patient, of which greater than 50% was spent in counseling and coordination of care and the detailed question and answer session. Consultation Date/Type/Reason Admit Date/Time Nov 29, 2018 at 10:29 Initial Consult Date 11/30/18 Type of Consult hematology Reason for Consultation anemia Requesting Provider: EULALIO FITZGERALD MD Date/Time of Note DATE: 12/12/18 TIME: 10:34 24 HR Interval Summary Free Text/Dictation no acute overnight events Exam/Review of Systems Exam Vitals Vital Signs Date Temp Pulse Resp B/P (MAP) Pulse Ox O2 O2 Flow FiO2 Time Delivery Rate 12/12/18 98.5 84 18 116/57 93 07:33 (76) 12/09/18 Nasal 2.0 08:20 Cannula Intake and Output 12/11/18 12/11/18 12/12/18 1515:00 23:00 07:00 IntakeIntake Total 1200 ml 480 ml BalanceBalance 1200 ml 480 ml Constitutional: alert, oriented Psych: no complaints Head: normocephalic Eyes: nl conjunctiva ENMT: nl external ears & nose Neck: supple Respiratory: clear to auscultation Cardiovascular: regular rate and rhythm Gastrointestinal: soft Musculoskeletal: nl extremities to inspection Results Result Diagram: 12/11/1852312/11/18523 Medications Medication Current Medications Acetaminophen (Tylenol Tab) 650 mg Q6H PRN PO MILD PAIN LEVEL 1-3; Start 11/29/18 at 18:00 Aspirin (Aspirin) 81 mg DAILY PO Last administered on 12/12/18at 08:40; Admin Dose 81 MG; Start 11/30/18 at 09:00 Atorvastatin Calcium (Lipitor) 40 mg QHS PO Last administered on 12/11/18 20:20 ; Admin Dose 40 MG; Start 11/29/18 at 21:00 Docusate Sodium (Colace) 100 mg BID PO Last administered on 12/11/18 20:20; Admin Dose 100 MG; Start 11/29/18 at 21:00 Ferrous Sulfate (Ferrous Sulfate (Ec)) 325 mg DAILY PO Last administered on 12/12/18 08:40; Admin Dose 325 MG; Start 11/30/18 at 09:00 Magnesium Oxide (Mag-Ox 400) 400 mg BID PO Last administered on 12/12/18 08:40; Admin Dose 400 MG; Start 11/29/18 at 21:00 Multivitamins Therapeutic (Theragran) 1 tab DAILY PO Last administered on 08:40; Admin Dose 1 TAB; Start 11/30/18 at 09:00 Ondansetron HCl (Zofran Tab) 4 mg Q8H PRN PO NAUSEA AND/OR VOMITING; Start 11/29/18 at 18:00 Senna (Senokot) 1 tab DAILY PRN PO CONSTIPATION; Start 11/29/18 at 18:00 Zolpidem Tartrate (Ambien) 5 mg QHS PRN PO INSOMNIA Last administered on 23:06; Admin Dose 5 MG; Start 11/29/18 at 18:00 Metoprolol Tartrate (Lopressor) 25 mg BID PO Last administered on 12/12/18 08:41; Admin Dose 25 MG; Start 11/30/18 at 09:00 Levothyroxine Sodium (Synthroid) 100 mcg AC BREAKFAST PO Last administered on 12/12/18 06:24; Admin Dose 100 MCG; Start 12/01/18 at 07:00 Guaifenesin/ Dextromethorphan (Robitussin Dm Liquid Cup) 5 ml Q6 PRN PO COUGH Last administered on 12/09/18 00:43; Admin Dose 5 ML; Start 12/04/18 at 12:00 LIZZ DALEY M.D. Dec 12, 2018 10:35
[2018-12-12] MEDS ORDERED: OMEP40CA6 PO (11:57)
--- NOTE | 2018-12-12 11:59 | PN ---
Date/Time of Note Date/Time of Note DATE: 12/12/18 TIME: 11:43 Assessment/Plan VTE Prophylaxis Risk score (from Ns)>0 risk: 5 SCD applied (from Ns): Yes Pharmacological prophylaxis: NA/contraindicated Pharm contraindication: bleeding Lines/Catheters IV C[facility]ter Type [facility]from [facility] Urinary Cath still in place: No Assessment/Plan Hospital Course Patient is awake alert tolerates diet well, had BM yesterday, plan of care boogie Canchola RN, case management pending authorization from the insurance from hospital bed delivery to to board and care. Assessment/Plan -Anemia most likely secondary to mild MDS, and potential diverticular bleed. Stable hemoglobin at status post blood transfusion, continue to continue to monitor hemoglobin and hematocrit. Dr. Milian is following in hematology consultation. -GI bleed, status post EGD with notion of gastritis, continue PPI. Status post colonoscopy with notion of diverticulosis, colon polyps with biopsy positive for tubular adenoma. Dr. Tubbs is following in gastroenterology consultation. -Coronary artery disease and peripheral vascular disease. Continue aspirin. -Hypothyroidism. Continue Synthroid 100 mcg daily. -Dyslipidemia. Continue Lipitor. -Hypertension. Continue Lopressor. Further recommendations based on clinical course. Plan of care discussed with Dr. Crouch. Result Diagram: 12/11/1852312/11/18523 Exam/Review of Systems Exam Vitals Vital Signs Date Temp Pulse Resp B/P (MAP) Pulse Ox O2 O2 Flow FiO2 Time Delivery Rate 12/12/18 98.5 84 18 116/57 93 07:33 (76) 12/09/18 Nasal 2.0 08:20 Cannula Intake and Output 12/11/18 12/11/18 12/12/18 1515:00 23:00 07:00 IntakeIntake Total 1200 ml 480 ml BalanceBalance 1200 ml 480 ml Constitutional: alert, oriented Neck: supple Respiratory: normal air movement Cardiovascular: nl pulses Gastrointestinal: soft, non-tender Extremities: normal pulses Medications Medication Current Medications Acetaminophen (Tylenol Tab) 650 mg Q6H PRN PO MILD PAIN LEVEL 1-3; Start 11/29/18 at 18:00 Aspirin (Aspirin) 81 mg DAILY PO Last administered on 12/12/18at 08:40; Admin Dose 81 MG; Start 11/30/18 at 09:00 Atorvastatin Calcium (Lipitor) 40 mg QHS PO Last administered on 12/11/18 20:20; Admin Dose 40 MG; Start 11/29/18 at 21:00 Docusate Sodium (Colace) 100 mg BID PO Last administered on 12/11/18 20:20; Admin Dose 100 MG; Start 11/29/18 at 21:00 Ferrous Sulfate (Ferrous Sulfate (Ec)) 325 mg DAILY PO Last administered on 08:40; Admin Dose 325 MG; Start 11/30/18 at 09:00 Magnesium Oxide (Mag-Ox 400) 400 mg BID PO Last administered on 12/12/18 08:40; Admin Dose 400 MG; Start 11/29/18 at 21:00 Multivitamins Therapeutic (Theragran) 1 tab DAILY PO Last administered on 12/12/18 08:40; Admin Dose 1 TAB; Start 11/30/18 at 09:00 Ondansetron HCl (Zofran Tab) 4 mg Q8H PRN PO NAUSEA AND/OR VOMITING; Start 11/29/18 at 18:00 Senna (Senokot) 1 tab DAILY PRN PO CONSTIPATION; Start 11/29/18 at 18:00 Zolpidem Tartrate (Ambien) 5 mg QHS PRN PO INSOMNIA Last administered on 12/06/18 23:06; Admin Dose 5 MG; Start 11/29/18 at 18:00 Metoprolol Tartrate (Lopressor) 25 mg BID PO Last administered on 12/12/18 08:41; Admin Dose 25 MG; Start 11/30/18 at 09:00 Levothyroxine Sodium (Synthroid) 100 mcg AC BREAKFAST PO Last administered on 12/12/18 06:24; Admin Dose 100 MCG; Start 12/01/18 at 07:00 Guaifenesin/ Dextromethorphan (Robitussin Dm Liquid Cup) 5 ml Q6 PRN PO COUGH Last administered on 12/09/18 00:43; Admin Dose 5 ML; Start 12/04/18 at 12:00 RODRIGUE TOURE Dec 12, 2018 11:53
[2018-12-12 13:49] VITALS: BP 106/69; PULSE 74; RESP 20
[2018-12-12 19:29] VITALS: BP 108/50; PULSE 71; RESP 16
[2018-12-12] MEDS: ATORVASTATIN 40 MG TAB PO SCH (20:52)
[2018-12-13 01:51] VITALS: BP 118/58; PULSE 81; RESP 16
[2018-12-13] MEDS ORDERED: PANTOPRAZOLE (EC) 40 MG TAB PO SCH (06:00)
[2018-12-13] MEDS: LEVOTHYROXINE 100 MCG TAB PO SCH (06:06)
[2018-12-13 07:21] VITALS: BP 141/60; PULSE 71; RESP 20
[2018-12-13] MEDS: ASPIRIN 81 MG TAB PO SCH (08:50)
[2018-12-13] MEDS: FERROUS SULFATE (EC) 325 MG TAB PO SCH (08:50)
[2018-12-13] MEDS: MAGNESIUM OXIDE 400 MG TAB PO SCH (08:51)
[2018-12-13] MEDS: MULTIVITAMINS THERAPEUTIC TAB PO SCH (08:51)
[2018-12-13] MEDS: METOPROLOL 50 MG TAB PO SCH (08:51)
[2018-12-13] MEDS: DOCUSATE SODIUM 100 MG CAP PO SCH (08:51)
--- NOTE | 2018-12-13 11:29 | CONS ---
Assessment/Plan Assessment/Plan Hospital Course (Demo Recall) #Anemia -Hg stable -most likely secondary to mild MDS as well as potential diverticular bleed -will erythropoietin level to see if patient would benefit from Procrit, but I Would only start Procrit if her Hg were consistently less that 10 -EGD demonstrates gastritis and colonoscopy demonstrated diverticulosis -no evidence of vitamin b12 or folate deficiency -Thyroid studies reviewed -sPEP is not consistent with multiple myeloma -normal LDH and haptoglobin make hemolysis unlikely #Hypothyroidism -continue Synthroid per primary #HTN -continue BP meds Thank you for the opportunity to participate in this patients care A total of 40 minutes of face to face time was spent speaking with the patient, of which greater than 50% was spent in counseling and coordination of care and the detailed question and answer session. Consultation Date/Type/Reason Admit Date/Time Nov 29, 2018 at 10:29 Initial Consult Date 11/30/18 Type of Consult hematology Reason for Consultation anemia Requesting Provider: EULALIO FITZGERALD MD Date/Time of Note DATE: 12/13/18 TIME: 11:26 24 HR Interval Summary Free Text/Dictation no acute overnight events Exam/Review of Systems Exam Vitals Vital Signs Date Temp Pulse Resp B/P (MAP) Pulse Ox O2 O2 Flow FiO2 Time Delivery Rate 12/13/18 97.1 71 20 141/60 95 07:21 (87) 12/09/18 Nasal 2.0 08:20 Cannula Intake and Output 12/12/18 12/12/18 12/13/18 1414:59 22:59 06:59 IntakeIntake Total 1180 ml 600 ml 518 ml BalanceBalance 1180 ml 600 ml 518 ml Constitutional: alert Psych: no complaints Head: normocephalic Eyes: nl conjunctiva ENMT: nl external ears & nose Neck: supple Respiratory: clear to auscultation Cardiovascular: regular rate and rhythm Gastrointestinal: soft Musculoskeletal: nl extremities to inspection Results Result Diagram: 12/11/1852312/11/18523 Medications Medication Current Medications Acetaminophen (Tylenol Tab) 650 mg Q6H PRN PO MILD PAIN LEVEL 1-3; Start 11/29/18 at 18:00 Aspirin (Aspirin) 81 mg DAILY PO Last administered on 12/13/18at 08:50; Admin Dos e 81 MG; Start 11/30/18 at 09:00 Atorvastatin Calcium (Lipitor) 40 mg QHS PO Last administered on 12/12/18 20:52; Admin Dose 40 MG; Start 11/29/18 at 21:00 Docusate Sodium (Colace) 100 mg BID PO Last administered on 12/12/18 20:51; Admin Dose 100 MG; Start 11/29/18 at 21:00 Ferrous Sulfate (Ferrous Sulfate (Ec)) 325 mg DAILY PO Last administered on 12/13/18 08:50; Admin Dose 325 MG; Start 11/30/18 at 09:00 Magnesium Oxide (Mag-Ox 400) 400 mg BID PO Last administered on 12/13/18 08:51; Admin Dose 400 MG; Start 11/29/18 at 21:00 Multivitamins Therapeutic (Theragran) 1 tab DAILY PO Last administered on 12/13/18 08:51; Admin Dose 1 TAB; Start 11/30/18 at 09:00 Ondansetron HCl (Zofran Tab) 4 mg Q8H PRN PO NAUSEA AND/OR VOMITING; Start 11/29/18 at 18:00 Senna (Senokot) 1 tab DAILY PRN PO CONSTIPATION; Start 11/29/18 at 18:00 Zolpidem Tartrate (Ambien) 5 mg QHS PRN PO INSOMNIA Last administered on 12/06/18 23:06; Admin Dose 5 MG; Start 11/29/18 at 18:00 Metoprolol Tartrate (Lopressor) 25 mg BID PO Last administered on 12/13/18 08:51; Admin Dose 25 MG; Start 11/30/18 at 09:00 Levothyroxine Sodium (Synthroid) 100 mcg AC BREAKFAST PO Last administered on 12/13/18 06:06; Admin Dose 100 MCG; Start 12/01/18 at 07:00 Guaifenesin/ Dextromethorphan (Robitussin Dm Liquid Cup) 5 ml Q6 PRN PO COUGH Last administered on 12/09/18 00:43; Admin Dose 5 ML; Start 12/04/18 at 12:00 Pantoprazole (Protonix Tab) 40 mg DAILY@06 PO Last administered on 12/13/18 06:06; Admin Dose 40 MG; Start 12/13/18 at 06:00 LIZZ DALEY M.D. Dec 13, 2018 11:29
[2018-12-13 13:22] VITALS: BP 152/64; PULSE 74; RESP 20
== END 2018-12-13 17:00 | disposition home or self-care (01) | DRG 811 ==
LOC: E/R 09:50 → 2NE 10:29
PROVIDERS: ADMIT Internal Medicine; ATTEND Internal Medicine
PROC: 30233N1 Transfusion of Nonautologous Red Blood Cells into Peripheral Vein, Percutaneous Approach (ICD-10-PCS; principal; 2018-11-29)
PROC: 0DB48ZX Excision of Esophagogastric Junction, Via Natural or Artificial Opening Endoscopic, Diagnostic (ICD-10-PCS; 2018-11-30)
PROC: 0DB78ZX Excision of Stomach, Pylorus, Via Natural or Artificial Opening Endoscopic, Diagnostic (ICD-10-PCS; 2018-11-30)
PROC: 0DB68ZX Excision of Stomach, Via Natural or Artificial Opening Endoscopic, Diagnostic (ICD-10-PCS; 2018-11-30)
PROC: 0DBM8ZX Excision of Descending Colon, Via Natural or Artificial Opening Endoscopic, Diagnostic (ICD-10-PCS; 2018-12-01)
DX: D62 Acute posthemorrhagic anemia (principal); K57.31 Diverticulosis of large intestine without perforation or abscess with bleeding; K29.71 Gastritis, unspecified, with bleeding; D46.9 Myelodysplastic syndrome, unspecified; E03.9 Hypothyroidism, unspecified; I10 Essential (primary) hypertension; I25.10 Atherosclerotic heart disease of native coronary artery without angina pectoris; E78.5 Hyperlipidemia, unspecified; I73.9 Peripheral vascular disease, unspecified; K44.9 Diaphragmatic hernia without obstruction or gangrene; K64.0 First degree hemorrhoids; K20.9 Esophagitis, unspecified; E87.6 Hypokalemia; D12.4 Benign neoplasm of descending colon; Z88.2 Allergy status to sulfonamides; Z79.82 Long term (current) use of aspirin
CPT/HCPCS: 36415; 36430; 71045; 80048; 80053; 81003; 82270; 82607; 82668; 82728; 82746; 83010; 83540; 83615; 83690; 84155; 84165; 84439; 84443; 84481; 84484; 85025; 85045; 85610; 85651; 85730; 86850; 86900; 86901; 86920; 87081; 87086; 88305; 88312; 88313; 93005; 94640; 94664; 97110; 97116; 97162; 97530; J1940; J3010; J3480; J7030; P9016